=== PATIENT | male | born 1940 | race Caucasian/White ===

== ENCOUNTER 2025-04-12 05:36 | Inpatient (IN) | payer OTHER ==
[2025-04-12] VITALS (22 sets, daily range): BP systolic 91–141; BP diastolic 5–89
[~2025-04-12] VITALS: Ht 177.8 cm; Wt 62.6 kg
[2025-04-12 06:02] LABS: BASOPHILS ABSOLUTE AUTO 0.06 K/mm3 (0.00-0.23); BASOPHILS PERCENT AUTO 0 % (0-2); EOSINOPHILS ABSOLUTE AUTO 0.00 K/mm3 (0.00-0.68); EOSINOPHILS PERCENT AUTO 0 % (0-6); Hematocrit 24.3 % (37.0-53.0); Hemoglobin 8.6 g/dL (13.5-17.5); IMMATURE GRAN ABSOLUTE AUTO 1.03 K/mm3 (0.00-0.10); IMMATURE GRAN PERCENT AUTO 4 % (0-1); LYMPHOCYTES ABSOLUTE AUTO 0.74 K/mm3 (0.84-5.20); LYMPHOCYTES PERCENT AUTO 3 % (21-46); MONOCYTES ABSOLUTE AUTO 1.01 K/mm3 (0.16-1.47); MONOCYTES PERCENT AUTO 4 % (4-13); Mean Corpuscular HGB Conc 35.4 g/dL (31.5-36.5); Mean Corpuscular Volume 87 fL (80-100); NEUTROPHILS ABSOLUTE AUTO 21.08 K/mm3 (1.96-9.15); NEUTROPHILS PERCENT AUTO 88 % (41-73); NRBC ABSOLUTE 0.03 K/mm3 (0.00-0.02); NRBC Auto 0.1 /100 WBC (0.0-0.2); Platelet Count 84 K/mm3 (150-400); RDW Coefficient Variation 14.0 % (11.7-14.2); RDW Standard Deviation 44.1 fL (35.1-46.3)
[2025-04-12 06:06] LABS: Calcium, Ionized (POC) 0.97 mmol/L (1.10-1.46); Chloride (POC) 94 mmol/L (98-108); Creatinine (POC) 8.7 mg/dL (0.8-1.3); Glucose (ISTAT POC) 181 mg/dL (70-99); Hematocrit (POC) 24.0 % (41.0-53.0); Hemoglobin (POC) 8.2 g/dL (13.5-17.5); Potassium (POC) 4.9 mmol/L (3.5-5.5); Sodium (POC) 127 mmol/L (135-148); Total CO2 (POC) 14 mmol/L (21-32)
[2025-04-12] MEDS ORDERED: Ketamine HCl 100 MG / ML 5ML Vial ONE (06:17)
[2025-04-12] MEDS ORDERED: Magnesium Sulf 2 GM/Water 50ML 50 ML IV ONE (06:20)
[2025-04-12] MEDS ORDERED: Enoxaparin 80 MG/0.8 ML SYR SC ONE (06:20)
[2025-04-12] MEDS ORDERED: CefTRIAXone Sodium 2,000 MG in NS 100 ML IV ONE (06:20)
[2025-04-12] MEDS ORDERED: NS 1,000 ML IV ONE ×4 (06:24→09:10)
[2025-04-12 06:30] LABS: Magnesium, Blood 2.4 mg/dL (1.6-2.4)
[2025-04-12 06:37] LABS: Alanine Aminotransfer (ALT/SGP 28.0 U/L (12-78); Albumin, Blood 1.8 g/dL (3.4-5.0); Albumin/Globulin Ratio 0.6 (0.8-1.8); Anion Gap 22.0 mmol/L (3-11); Aspartate Aminotrans (AST/SGOT 41.0 U/L (12-37); Bilirubin, Total 0.7 mg/dL (0.1-1.0); Blood Urea Nitrogen 237.0 mg/dL (8-24); CO2, Blood 16.0 mmol/L (21-32); Calcium, Blood 7.8 mg/dL (8.5-10.1); Chloride, Blood 95.0 mmol/L (98-108); Creatinine, Blood 7.88 mg/dL (0.60-1.20); Globulin, Blood 2.9 g/dL (2.2-4.0); Glucose, Blood 192.0 mg/dL (70-99); Potassium, Blood 4.8 mmol/L (3.5-5.5); Prothrombin Time Results 14.1 Sec (9.7-11.5); Sodium, Blood 128.0 mmol/L (136-145); Total Protein, Blood 4.7 g/dL (6.4-8.2)
[2025-04-12 06:51] LABS: Source, Urine Clean Catch
[2025-04-12 06:54] LABS: Bilirubin, Urine Neg (Neg); Color, Urine Yellow (P-Yellow); Glucose Qualitative, Urine Neg (Neg); Ketones, Urine Neg (Neg); Leukocyte Esterase, Urine 2+ (Neg); Protein, Urine Neg (Neg); Specific Gravity, Urine 1.015 (1.003-1.022); Urobilinogen, Urine NORM (Normal)
[2025-04-12] MEDS ORDERED: Calcium Gluconate 10% 2,000 MG in NS 50 ML IV ONE (07:00)
[2025-04-12] MEDS ORDERED: NS 1,000 ML BAG IR ONE (07:20)
[2025-04-12] MEDS ORDERED: Pantoprazole Sodium 40 MG Injection IV ONE (08:00)
[2025-04-12] MEDS ORDERED: Vasopressin 20 UNITS in NS 100 ML IV SCH (08:50)
[2025-04-12] MEDS ORDERED: FLU VACC TS2025(65UP)/MF59C/PF 45 MCG/0.5 ML SYRINGE IM SCH (09:20)
[2025-04-12] MEDS ORDERED: Amiodarone HCl 450 MG in NS 250 ML IV SCH (09:35)
[2025-04-12] MEDS ORDERED: Amiodarone HCl 150 MG in NS 100 ML IV ONE ×2 (09:35→14:25)
[2025-04-12 09:37] LABS: pH Blood Venous 7.25 (7.34-7.37)
[2025-04-12 09:42] LABS: Hematocrit 26.2 % (37.0-53.0); Hemoglobin 9.1 g/dL (13.5-17.5)
[2025-04-12] MEDS ORDERED: Piperacillin/Tazobactam Sod 3.375 GM in NS 100 ML IV ONE ×2 (10:05→13:40)
[2025-04-12] MEDS ORDERED: NS 1,000 ML IV SCH (10:40)
--- NOTE | 2025-04-12 12:30 | NUR ---
ARRIVAL TO UNIT PT ARRIVED TO UNIT VIA [facility]RE[facility] FROM ED. ED NURSE & RT AT BEDSIDE. PT INTUBATED/SEDATED. VENT SETTINGS 16/5/430/50%, CAPNOGRAPHY IN USE. PT TOLERATING VENT. CENTRAL LINE TO LIJ INFUSING AMIODARONE, LEVOPHED, PRECEDEX PER FLOWSHEET. ARTERIAL LINE TO R WRIST c ARMBOARD IN PLACE, DRESSING C/D/I. MAP >65. HR AFIB 120-140s. TEMP 96.6, WARM BLANKETS PROVIDED. PT RETRACTS TO PAINFUL STIMULI, ABLE TO OPEN EYES. PT DOES NOT FOLLOW COMMANDS OR TRACK STAFF IN ROOM. 2 PERSON ASSIST R/T REPOSITIONING. TEMP GREEN DRAINING YELLOW URINE TO GRAVITY. RECTAL TUBE IN PLACE c NO STOOL IN COLLECTION BAG. OG TUBE CLAMPED. MULTIPLE WOUNDS TO BILAT LEs, SKIN TEAR TO R FA, COCCYX WOUND. PICTURES IN CHART, MEPILEXES PLACED. CHG BATH GIVEN & ALL LINENS CHANGED.
[2025-04-12 12:42] LABS: Thyroid Stimulating Hormone 1.21 uIU/mL (0.360-4.800)
[2025-04-12] MEDS ORDERED: Cetylpyridinium Chloride 1 EA MISC MT SCH (14:15)
[2025-04-12] MEDS ORDERED: LORazepam 2 MG/ML 1ML Injection IV PRN (14:15)
[2025-04-12] MEDS ORDERED: FentaNYL Citrate 50 MCG/ML 2 ML Injection IV PRN (14:20)
[2025-04-12] MEDS ORDERED: NS 250 ML IV PRN (14:30)
[2025-04-12] MEDS ORDERED: Ketamine HCl 100 MG / ML 5ML Vial IV ONE (15:45)
[2025-04-12] MEDS ORDERED: Rocuronium Bromide 10 MG/ML 5ML Injection IV ONE (15:45)
[2025-04-12] MEDS ORDERED: Phenylephrine HCl 100 MCG/ML-NS 10MLSYR (1MG/10ML) IV ONE (15:45)
[2025-04-12] MEDS ORDERED: Hydrogen Peroxide 1.5 % Solution MT SCH (16:00)
[2025-04-12] MEDS ORDERED: Propofol 10mg/ml 20 ml Vial (Procedural) IV ONE (16:19)
[2025-04-12] MEDS ORDERED: Glycopyrrolate 0.2 MG/ML 5ML SYR (1MG Total) IV ONE (16:19)
[2025-04-12 16:25] LABS: pH Blood Arterial 7.39 (7.35-7.45)
[2025-04-12 16:52] LABS: BASOPHILS ABSOLUTE AUTO 0.06 K/mm3 (0.00-0.23); BASOPHILS PERCENT AUTO 0 % (0-2); EOSINOPHILS ABSOLUTE AUTO 0.01 K/mm3 (0.00-0.68); EOSINOPHILS PERCENT AUTO 0 % (0-6); Hematocrit 24.5 % (37.0-53.0); Hemoglobin 9.0 g/dL (13.5-17.5); IMMATURE GRAN ABSOLUTE AUTO 0.85 K/mm3 (0.00-0.10); IMMATURE GRAN PERCENT AUTO 3 % (0-1); LYMPHOCYTES ABSOLUTE AUTO 0.54 K/mm3 (0.84-5.20); LYMPHOCYTES PERCENT AUTO 2 % (21-46); MONOCYTES ABSOLUTE AUTO 0.86 K/mm3 (0.16-1.47); MONOCYTES PERCENT AUTO 4 % (4-13); Mean Corpuscular HGB Conc 36.7 g/dL (31.5-36.5); Mean Corpuscular Volume 85 fL (80-100); NEUTROPHILS ABSOLUTE AUTO 22.48 K/mm3 (1.96-9.15); NEUTROPHILS PERCENT AUTO 91 % (41-73); NRBC ABSOLUTE 0.02 K/mm3 (0.00-0.02); NRBC Auto 0.1 /100 WBC (0.0-0.2); Platelet Count 93 K/mm3 (150-400); RDW Coefficient Variation 14.1 % (11.7-14.2); RDW Standard Deviation 43.8 fL (35.1-46.3)
--- NOTE | 2025-04-12 16:59 | NUR ---
MET WITH PT'S FRIEND AND APPOINTEE ON ADVANCE DIRECTIVE, SINCERE. COPY ON HARD CHART, SENT TO MEDICAL RECORDS, AND EMAILED TO FULL STACK DEVELOPER. SHE REQUESTS CHANGING CODE STATUS TO DNR, BUT OTHERWISE WANTS TO SEE HOW HE DOES THROUGH THE NIGHT. BEDSIDE RN AND PHYSICIAN UPDATED, ORDER APPROVED FOR DNR.
[2025-04-12 17:27] LABS: Magnesium, Blood 2.7 mg/dL (1.6-2.4)
[2025-04-12 17:39] LABS: Alanine Aminotransfer (ALT/SGP 30.0 U/L (12-78); Albumin, Blood 1.9 g/dL (3.4-5.0); Albumin/Globulin Ratio 0.7 (0.8-1.8); Anion Gap 13.0 mmol/L (3-11); Aspartate Aminotrans (AST/SGOT 43.0 U/L (12-37); Bilirubin, Total 0.6 mg/dL (0.1-1.0); Blood Urea Nitrogen 190.0 mg/dL (8-24); CO2, Blood 18.0 mmol/L (21-32); Calcium, Blood 7.8 mg/dL (8.5-10.1); Chloride, Blood 111.0 mmol/L (98-108); Creatinine, Blood 4.54 mg/dL (0.60-1.20); Globulin, Blood 2.9 g/dL (2.2-4.0); Glucose, Blood 207.0 mg/dL (70-99); Phosphorus, Blood 3.8 mg/dL (2.5-4.9); Potassium, Blood 4.2 mmol/L (3.5-5.5); Total Protein, Blood 4.8 g/dL (6.4-8.2)
[2025-04-12 17:40] LABS: Sodium, Blood 138.0 mmol/L (136-145)
--- NOTE | 2025-04-12 18:22 | NUR ---
SHIFT SUMMARY INTUBATED/SEDATED. PT ROUSABLE TO VERBAL/PAINFUL STIMULI. ABLE TO ANSWER YES/NO QUESTIONS c HEAD NOD, FOLLOWS SIMPLE COMMANDS. PRECEDEX/FENTANYL INFUSING PER FLOWSHEET. ARTERIAL LINE L WRIST INSERTION SITE C/D/I. LIJ CENTRAL LINE CHG TEG C/D/I. AMIODARONE/LEVOPHED INFUSING PER FLOWSHEET TO MAINTAIN MAP >65. HR TODAY AFIB 60s-140s, CURRENTLY 110-120s. TEMP MIN 96.6, CURRENTLY 97.8. OG TUBE TO LIS, APPROX 1L COFFE GROUND OUTPUT 1730, DR. RAZO AWARE. RECTAL TUBE IN PLACE, NO OUTPUT. TEMP GREEN DRAINING YELLOW URINE TO GRAVITY. PICTURES OF WOUNDS IN CHART c MULTIPLE MEPILEX IN PLACE. Q2 TURN SCHEDULE MAINTAINED. FRIEND, CHRIS, DESIGNATED DECISION MAKER PER ADVANCE DIRECTIVE ON CHART. ANTICIPATED SEDATION VACATION TOMMOROW & PLAN OF CARE CONVERSATION. WILL REPORT TO NAYLA GRAJEDA.
--- NOTE | 2025-04-12 20:30 | NUR ---
ASSUMPTION OF CARE: ASSUMED CARE AT START OF SHIFT (1899). REPORT RECEIVED FROM GUCCI SALAS RN. PT IS DOING WELL AND RESTING IN BED. PT IS INTUBATED, ALERT TO VOICE AND ABLE TO NOD HEAD TO YES OR NO QUESTTIONS, CAN FOLLOW SIMPLE COMMANDS. PT DENIES ANY PAIN OR CP AT THIS TIME. ON AMIODOARONE, LEVOPHED, AND FENTANYL GTT PER EMR ORDERS. ON VENT- ACVC: 16/430/5/35% LUNG SOUNDS ARE CAORSE, SPO2 >65%. A-FIB RYTHM WITH SBP: 90-100'S MAP >65 HR: 60-150'S. LINES: PERIPHERAL RAC, LAC, L FOREARM, CENTERAL LINE IN LIJ, ART LINE IN R ARM. GREEN CATHETER AND RECTAL IN PLACE AND DRAINING TO GRAVITY. OG TUBE PLACE AND CONNECTED TO WALL SUCTION. LINES, CORDS, AND TUBES PLACED OUT OF REACH. CALL LIGHT PLACED WITHIN REACH.
[2025-04-12] MEDS ORDERED: Piperacillin/Tazobactam Sod 3.375 GM in NS 100 ML IV SCH (23:00)
[2025-04-13] VITALS (27 sets, daily range): BP systolic 96–136; BP diastolic 43–91
[2025-04-13 04:12] LABS: Hematocrit 24.7 % (37.0-53.0); Hemoglobin 8.9 g/dL (13.5-17.5); Mean Corpuscular HGB Conc 36.0 g/dL (31.5-36.5); Mean Corpuscular Volume 85 fL (80-100); NRBC ABSOLUTE 0.09 K/mm3 (0.00-0.02); NRBC Auto 0.4 /100 WBC (0.0-0.2); Platelet Count 113 K/mm3 (150-400); RDW Coefficient Variation 14.3 % (11.7-14.2); RDW Standard Deviation 44.3 fL (35.1-46.3)
[2025-04-13 04:13] LABS: pH Blood Arterial 7.45 (7.35-7.45)
[2025-04-13 04:32] LABS: Magnesium, Blood 2.6 mg/dL (1.6-2.4)
[2025-04-13 05:20] LABS: Alanine Aminotransfer (ALT/SGP 26.0 U/L (12-78); Albumin, Blood 1.9 g/dL (3.4-5.0); Albumin/Globulin Ratio 0.6 (0.8-1.8); Anion Gap 14.0 mmol/L (3-11); Aspartate Aminotrans (AST/SGOT 33.0 U/L (12-37); Bilirubin, Total 0.7 mg/dL (0.1-1.0); Blood Urea Nitrogen 160.0 mg/dL (8-24); CO2, Blood 18.0 mmol/L (21-32); Calcium, Blood 7.9 mg/dL (8.5-10.1); Chloride, Blood 117.0 mmol/L (98-108); Creatinine, Blood 3.22 mg/dL (0.60-1.20); Globulin, Blood 3.1 g/dL (2.2-4.0); Glucose, Blood 208.0 mg/dL (70-99); Phosphorus, Blood 3.4 mg/dL (2.5-4.9); Potassium, Blood 3.9 mmol/L (3.5-5.5); Sodium, Blood 145.0 mmol/L (136-145); Total Protein, Blood 5.0 g/dL (6.4-8.2)
--- NOTE | 2025-04-13 06:41 | NUR ---
SHIFT SUMMARY: PT IS DOING WELL AND RESTING IN BED. PT REMAIN ALERT TO VERBAL AND ABLE TO NOD TO YES/NO QUESTIION AND FOLLOWING SIMPLE COMMANDS. FENTANYL, PRECEDEX, LEVOPHED, AND AMIODARONE GTT PER EMR ORDERS. VITAL SIGNS HAVE BEEN STABLE. PT STILL INTUBATED AND ON VENT: ACVC- 16/430/5/35% SPO2 >95%. A-FIB RYTHM SBP: 90-110'S MAP >65 HR: 60-150'S. ART LINE IN R ARM. IV: PERIPHERAL LAC, RAC, L FOREARM, CENTERAL LINE IN LIJ. GREEN CATH AND RECTAL TUBE IN PLACE AND DRAINING TO GRAVITY. OG TUBE CONNECTED TO INTERMITENT SUCTION. LINES, CORDS, AND TUBES PLACED OUT OF REACH. CALL LIGHT PLACED WITHIN REACH.
--- NOTE | 2025-04-13 09:00 | NUR ---
DR RAZO TO BEDSIDE ORDER TO D/C FENTANYL. ORDER IV CARDIZEM. ORDER TO EXTUBATE. FRIENDS AT BEDSIDE.
[2025-04-13] MEDS ORDERED: Diltiazem HCl 5 MG / ML 5ML Vial IV ONE (09:35)
[2025-04-13 12:23] LABS: Hematocrit 25.4 % (37.0-53.0); Hemoglobin 8.9 g/dL (13.5-17.5); Mean Corpuscular HGB Conc 35.0 g/dL (31.5-36.5); Mean Corpuscular Volume 88 fL (80-100); NRBC ABSOLUTE 0.11 K/mm3 (0.00-0.02); NRBC Auto 0.4 /100 WBC (0.0-0.2); Platelet Count 125 K/mm3 (150-400); RDW Coefficient Variation 14.6 % (11.7-14.2); RDW Standard Deviation 46.6 fL (35.1-46.3)
--- NOTE | 2025-04-13 14:29 | NUR ---
Spiritual Care Visit. Pt. is resting but responds when I enter the room. Pt. is pleasant. Friends are at bedside. Facilitated a short life review and considered matters of yareli and belief. Pt. verbalized his yareli is not limited to going to a single synagogue. Listem with empathy and interest. Prayed with the Pt. Pt. verbalized gratitude fo rthe spiritual care visit and welcomed this autocad electrical designer to return.
[2025-04-13] MEDS ORDERED: ZINC OXIDE/PETROLATUM, YELLOW 1 APPLIC/71 GM PASTE TOP PRN (18:25)
--- NOTE | 2025-04-13 18:29 | NUR ---
SHIFT SUMMARY PT A&O x3. PT ROUSBALE TO VERBAL STIMULI, RESPONDS TO QUESTIONS APPROPRIATELY. SPO2 >98% ON RA. SPEECH SOFT S/P EXTUBATION @ 0920 TODAY. FOLLOWS COMMANDS, EXTREMITIES WEAK. PT VERBALIZES STRONG WANT TO DRINK WATER, PT HAS CONSISTENT COUGH c ORAL SWABS. PT VERBALIZES UNDERSTANDING OF CONTINUED NPO STATUS R/T ASPIRATION RISK. LIJ CENTRAL LINE CHG TEG C/D/I. MAP >65 VIA ARTERIAL LINE L WRIST INSERTION SITE C/D/I. HR AFIB 50s-140s. AMIODARONE TO CONTINUE @ 0.5MG/MIN PER /, LEVOPHED CURRENTLY INFUSING @ 4MCG/MIN, CARDIZEM CURRENTLY ON STANDBY. LR INFUSING @ 125mL/HR. TEMP GREEN DRAINING YELLOW URINE TO GRAVITY. OG TUBE REMOVED TODAY, MIN OUTPUT PRIOR TO REMOVAL c EXTUBATION. RECTAL TUBE REMOVED TODAY, SMALL AMOUNT OF STOOL AROUND INSERTION SITE, NO BM SINCE REMOVAL. Q2 TURN SCHEDULE MAINTAINED, PT ABLE TO MOVE LIMBS BUT IS WEAK. CAREGIVER CURRENTLY AT BEDSIDE. CALL LIGHT IN REACH, REPORT TO BE GIVEN TO NAYLA GRAJEDA.
[2025-04-13] MEDS ORDERED: Pantoprazole Sodium 40 MG Injection IV SCH (21:00)
[2025-04-14] VITALS (48 sets, daily range): BP systolic 87–132; BP diastolic 47–115
[2025-04-14 04:08] LABS: BASOPHILS ABSOLUTE AUTO 0.07 K/mm3 (0.00-0.23); BASOPHILS PERCENT AUTO 0 % (0-2); EOSINOPHILS ABSOLUTE AUTO 0.02 K/mm3 (0.00-0.68); EOSINOPHILS PERCENT AUTO 0 % (0-6); Hematocrit 21.2 % (37.0-53.0); Hemoglobin 7.4 g/dL (13.5-17.5); IMMATURE GRAN ABSOLUTE AUTO 1.42 K/mm3 (0.00-0.10); IMMATURE GRAN PERCENT AUTO 6 % (0-1); LYMPHOCYTES ABSOLUTE AUTO 0.63 K/mm3 (0.84-5.20); LYMPHOCYTES PERCENT AUTO 3 % (21-46); MONOCYTES ABSOLUTE AUTO 1.97 K/mm3 (0.16-1.47); MONOCYTES PERCENT AUTO 8 % (4-13); Mean Corpuscular HGB Conc 34.9 g/dL (31.5-36.5); Mean Corpuscular Volume 89 fL (80-100); NEUTROPHILS ABSOLUTE AUTO 20.92 K/mm3 (1.96-9.15); NEUTROPHILS PERCENT AUTO 84 % (41-73); NRBC ABSOLUTE 0.38 K/mm3 (0.00-0.02); NRBC Auto 1.5 /100 WBC (0.0-0.2); Platelet Count 113 K/mm3 (150-400); RDW Coefficient Variation 14.7 % (11.7-14.2); RDW Standard Deviation 47.2 fL (35.1-46.3)
[2025-04-14 04:34] LABS: Magnesium, Blood 2.4 mg/dL (1.6-2.4)
[2025-04-14 04:37] LABS: Alanine Aminotransfer (ALT/SGP 23.0 U/L (12-78); Albumin, Blood 1.8 g/dL (3.4-5.0); Albumin/Globulin Ratio 0.7 (0.8-1.8); Anion Gap 5.0 mmol/L (3-11); Aspartate Aminotrans (AST/SGOT 31.0 U/L (12-37); Bilirubin, Total 0.6 mg/dL (0.1-1.0); Blood Urea Nitrogen 77.0 mg/dL (8-24); CO2, Blood 26.0 mmol/L (21-32); Calcium, Blood 7.6 mg/dL (8.5-10.1); Chloride, Blood 129.0 mmol/L (98-108); Creatinine, Blood 1.56 mg/dL (0.60-1.20); Globulin, Blood 2.6 g/dL (2.2-4.0); Glucose, Blood 135.0 mg/dL (70-99); Phosphorus, Blood 1.7 mg/dL (2.5-4.9); Potassium, Blood 3.1 mmol/L (3.5-5.5); Sodium, Blood 157.0 mmol/L (136-145); Total Protein, Blood 4.4 g/dL (6.4-8.2)
[2025-04-14 05:11] LABS: BASOPHILS ABSOLUTE AUTO 0.05 K/mm3 (0.00-0.23); BASOPHILS PERCENT AUTO 0 % (0-2); EOSINOPHILS ABSOLUTE AUTO 0.02 K/mm3 (0.00-0.68); EOSINOPHILS PERCENT AUTO 0 % (0-6); Hematocrit 21.1 % (37.0-53.0); Hemoglobin 7.3 g/dL (13.5-17.5); IMMATURE GRAN ABSOLUTE AUTO 1.28 K/mm3 (0.00-0.10); IMMATURE GRAN PERCENT AUTO 5 % (0-1); LYMPHOCYTES ABSOLUTE AUTO 0.66 K/mm3 (0.84-5.20); LYMPHOCYTES PERCENT AUTO 3 % (21-46); MONOCYTES ABSOLUTE AUTO 1.91 K/mm3 (0.16-1.47); MONOCYTES PERCENT AUTO 8 % (4-13); Mean Corpuscular HGB Conc 34.6 g/dL (31.5-36.5); Mean Corpuscular Volume 89 fL (80-100); NEUTROPHILS ABSOLUTE AUTO 20.45 K/mm3 (1.96-9.15); NEUTROPHILS PERCENT AUTO 84 % (41-73); NRBC ABSOLUTE 0.38 K/mm3 (0.00-0.02); NRBC Auto 1.6 /100 WBC (0.0-0.2); Platelet Count 108 K/mm3 (150-400); RDW Coefficient Variation 14.7 % (11.7-14.2); RDW Standard Deviation 47.3 fL (35.1-46.3)
[2025-04-14 05:39] LABS: Alanine Aminotransfer (ALT/SGP 23.0 U/L (12-78); Albumin, Blood 1.8 g/dL (3.4-5.0); Albumin/Globulin Ratio 0.7 (0.8-1.8); Anion Gap 3.0 mmol/L (3-11); Aspartate Aminotrans (AST/SGOT 31.0 U/L (12-37); Bilirubin, Total 0.6 mg/dL (0.1-1.0); Blood Urea Nitrogen 73.0 mg/dL (8-24); CO2, Blood 27.0 mmol/L (21-32); Calcium, Blood 7.8 mg/dL (8.5-10.1); Chloride, Blood 130.0 mmol/L (98-108); Creatinine, Blood 1.45 mg/dL (0.60-1.20); Globulin, Blood 2.7 g/dL (2.2-4.0); Glucose, Blood 135.0 mg/dL (70-99); Magnesium, Blood 2.4 mg/dL (1.6-2.4); Phosphorus, Blood 1.7 mg/dL (2.5-4.9); Potassium, Blood 3.1 mmol/L (3.5-5.5); Sodium, Blood 157.0 mmol/L (136-145); Total Protein, Blood 4.5 g/dL (6.4-8.2)
--- NOTE | 2025-04-14 06:25 | NUR ---
SHIFT SUMMARY PT AWAKE FREQUENTLY T/O NIGHT, ORIENTED X4, KNOWS DATE AND WHY HE IS HERE, MAEEX4 WITH GENERALIZED WEAKNESS, STILL NEEDS MAX ASSIST WITH REPOSITIONING. AMIODARONE GTT, LEVOPHED GTT, IVF PER ORDERS, SEE FLOWSHEET FOR CURRENT RATES. HR HAS REMAINED SINUS OFELIA 50'S-60'S WITH PACS T/O MOST OF NIGHT. DR BENITO UPDATED WITH LAB RESULTS THIS AM, STATES WILL LOOK AT CHART AND PUT IN ORDERS. A-LINE INTACT WITH GOOD WAVEFORM, CORRELATING WITH NIBP. WILL UPDATE DAY RN WITH ALL OUTSTANDING ISSUES AND PROBLEMS TO DATE. VSS AT THIS TIME.
[2025-04-14] MEDS ORDERED: Potassium Phosphate Dibasic 20 MM in Dextrose 5% 500 ML IV STA (06:30)
[2025-04-14] MEDS ORDERED: Insulin Regular 100 UNIT/ML 10ML Vial SC SCH (08:00)
--- NOTE | 2025-04-14 08:06 | NUR ---
ASSUMED CARE NOTE: ASSUMED CARE OF PT AT 0700, PT IS ALERT AND ORIENTED X 4, ABLE TO FOLLOW COMMANDS AND COMMUNICTAE NEEDS. PT WEAK T/O. PT ON RA WITH SPO2 AT 100% NO RESP DISTRESS NOTED. PT IN SB-SR, OCCASIONAL PVC'S, AMIODORONE STOPPED AT 0813 PER . LEVOPHED INFUSING AT 2MCG/MIN TO MAINTAIN MAP ABOVE 65. ACTIVE BT IN ALL QUADRANTS, DENIES NAUSEA. TEMP GREEN PATENT, DRAINING TO GRVITY. LIJ CENTRAL LINE C/D/I. R A-LINE DRESSING C/D/I ZEROED. PLAN OF CARE ONGOING.
[2025-04-14] MEDS ORDERED: Potassium Phosphate Dibasic 10 MM in Dextrose 5% 250 ML IV SCH (11:30)
[2025-04-14 12:44] LABS: Hematocrit 23.3 % (37.0-53.0); Hemoglobin 8.1 g/dL (13.5-17.5); Mean Corpuscular HGB Conc 34.8 g/dL (31.5-36.5); Mean Corpuscular Volume 89 fL (80-100); NRBC ABSOLUTE 0.47 K/mm3 (0.00-0.02); NRBC Auto 2.3 /100 WBC (0.0-0.2); Platelet Count 105 K/mm3 (150-400); RDW Coefficient Variation 14.7 % (11.7-14.2); RDW Standard Deviation 47.0 fL (35.1-46.3)
[2025-04-14 13:11] LABS: Albumin, Blood 1.7 g/dL (3.4-5.0); Anion Gap 6 mmol/L (3-11); Blood Urea Nitrogen 59 mg/dL (8-24); CO2, Blood 26 mmol/L (21-32); Calcium, Blood 7.6 mg/dL (8.5-10.1); Chloride, Blood 125 mmol/L (98-108); Creatinine, Blood 1.26 mg/dL (0.60-1.20); Glucose, Blood 200 mg/dL (70-99); Magnesium, Blood 2.4 mg/dL (1.6-2.4); Phosphorus, Blood 2.6 mg/dL (2.5-4.9); Potassium, Blood 3.4 mmol/L (3.5-5.5); Sodium, Blood 154 mmol/L (136-145)
[2025-04-14 13:40] LABS: Prostate Specific Antigen >2000.000 ng/mL (0.000-4.000)
[2025-04-14] MEDS ORDERED: Metoclopramide HCl 5MG / ML 2ML Vial IV ONE (13:50)
--- NOTE | 2025-04-14 14:03 | NUR ---
PT IS ALERT AND ORIENTED THIS AM. HE STATED HE WANTS TO REMAIN DNR, BUT IS INTERESTED IN CONSULTING WITH ONCOLOGY TO SEE WHAT HIS OPTIONS ARE FOR CANCER TREATMENT. HE DENIES PAIN TODAY, IS PLEASANT AND COOPERATIVE WITH CARE. HE IS BEING SCHDULED FOR EGD. WILL UPDATE PT'S CELIA REYES.
[2025-04-14] MEDS ORDERED: Piperacillin/Tazobactam Sod 4.5 GM in NS 100 ML IV SCH (16:00)
[2025-04-14] MEDS ORDERED: Piperacillin/Tazobactam Sod 3.375 GM in NS 100 ML IV SCH (16:00)
--- NOTE | 2025-04-14 17:21 | NUR ---
04/14/[address] IN ICU 13; SEE ANESTHESIA RECORDS.
[2025-04-14] MEDS ORDERED: EpiNEPhrine 1 MG/1 ML 1ML Vial ONE (17:22)
--- NOTE | 2025-04-14 18:37 | NUR ---
SHIFT SUMMARY: PT IS ALERT AND ORIENTED X 4, ABLE TO FOLLOW COMMANDS AND COMMUNICATE NEEDS. GENERALIZED WEAKNESS T/O. PT DENIES PAIN T/O SHIFT. PT REMAINS ON RA WITH SPO2 ABOVE 95% NO RESP DISTRESS NOTED. PT IN SB WITH HR BETWEEN 50-60, LEVOPHED AT 2 MCG/MIN, UNABLE TO TITRATE OFF. PT DENIES CP. NO NAUSEA/VOMITING THIS SHIFT. SPEECH THERAPY UNABLE TO EVAL PT DUE TO NPO STATUS D/T EGD. ACTIVE BT IN ALL QUADRANTS, NO BM THIS SHIFT. GREEN CATHETER DRAINING TO GRAVITY. PT TURNED Q2HRS. PLAN OF CARE ONGOING, CALL LIGHT WITHIN REACH.
[2025-04-14] MEDS ORDERED: Sucralfate 1000MG / 10ML UD BTL PO SCH (21:00)
[2025-04-15] VITALS (74 sets, daily range): BP systolic 82–118; BP diastolic 40–94
[2025-04-15 03:46] LABS: Hematocrit 23.0 % (37.0-53.0); Hemoglobin 7.9 g/dL (13.5-17.5); Mean Corpuscular HGB Conc 34.3 g/dL (31.5-36.5); Mean Corpuscular Volume 90 fL (80-100); NRBC ABSOLUTE 0.54 K/mm3 (0.00-0.02); NRBC Auto 2.9 /100 WBC (0.0-0.2); Platelet Count 105 K/mm3 (150-400); RDW Coefficient Variation 15.4 % (11.7-14.2); RDW Standard Deviation 49.7 fL (35.1-46.3)
[2025-04-15 04:04] LABS: Alanine Aminotransfer (ALT/SGP 21.0 U/L (12-78); Albumin, Blood 1.7 g/dL (3.4-5.0); Albumin/Globulin Ratio 0.7 (0.8-1.8); Anion Gap 6.0 mmol/L (3-11); Aspartate Aminotrans (AST/SGOT 28.0 U/L (12-37); Bilirubin, Total 0.7 mg/dL (0.1-1.0); Blood Urea Nitrogen 38.0 mg/dL (8-24); CO2, Blood 26.0 mmol/L (21-32); Calcium, Blood 7.3 mg/dL (8.5-10.1); Chloride, Blood 125.0 mmol/L (98-108); Creatinine, Blood 1.06 mg/dL (0.60-1.20); Globulin, Blood 2.6 g/dL (2.2-4.0); Glucose, Blood 142.0 mg/dL (70-99); Magnesium, Blood 2.0 mg/dL (1.6-2.4); Phosphorus, Blood 1.6 mg/dL (2.5-4.9); Potassium, Blood 3.1 mmol/L (3.5-5.5); Sodium, Blood 154.0 mmol/L (136-145); Total Protein, Blood 4.3 g/dL (6.4-8.2)
[2025-04-15 04:10] LABS: BAND PERCENT MAN 4 % (0-8); BASOPHILS ABSOLUTE MAN 0.00 K/mm3 (0.00-0.23); BASOPHILS PERCENT MAN 0 % (0-2); EOSINOPHILS ABSOLUTE MAN 0.00 K/mm3 (0.00-0.68); EOSINOPHILS PERCENT MAN 0 % (0-6); LYMPHOCYTES % ATYPICAL MANUAL 1 % (0-0); LYMPHOCYTES ABSOLUTE MAN 0.56 K/mm3 (0.84-5.20); LYMPHOCYTES PERCENT MAN 2 % (21-46); METAMYELOCYTE ABSOLUTE MAN 0.56 K/mm3 (0.00-0.00); METAMYELOCYTE PERCENT MAN 3 % (0-0); MONOCYTES ABSOLUTE MAN 0.74 K/mm3 (0.16-1.47); MONOCYTES PERCENT MAN 4 % (4-13); MYELOCYTE ABSOLUTE MAN 0.37 K/mm3 (0.00-0.00); MYELOCYTE PERCENT MAN 2 % (0-0); NEUTROPHILS ABSOLUTE MAN 16.45 K/mm3 (1.96-9.15); SEG NEUTROPHILS PERCENT MAN 84 % (41-73)
[2025-04-15] MEDS ORDERED: Potassium Phosphate Dibasic 30 MM in Dextrose 5% 500 ML IV ONE (04:15)
--- NOTE | 2025-04-15 06:43 | NUR ---
SHIFT SUMMARY A/O X4 DURING SHIFT, FOLLOWS COMMANDS ABLE WITH GENERALIZED WEAKNESS, ABLE TO ASSIST MINIMALLY WITH REPOSITIONING. REMAINED SINUS OFELIA IN 50'S MOST OF SHIFT. DENIES CP OR DISCOMFORT. LEVO GTT CON'T AT [address] MOISE UPDATED WITH AM LABS, ORDERS RECEIVED AND IMPLEMENTED. VSS. AFEBRILE. WILL UPDATE DAY RN WITH ALL OUTSTANDING ISSUES AND PROBLEMS TO DATE.
[2025-04-15 10:10] LABS: Source, Urine Foley catheter
[2025-04-15 10:13] LABS: Bilirubin, Urine Neg (Neg); Color, Urine Yellow (P-Yellow); Glucose Qualitative, Urine Neg (Neg); Ketones, Urine Neg (Neg); Leukocyte Esterase, Urine 3+ (Neg); Protein, Urine 3+ (Neg); Specific Gravity, Urine 1.020 (1.003-1.022); Urobilinogen, Urine NORM (Normal)
[2025-04-15 10:22] LABS: Red Blood Cells, Urine TNTC /hpf (0-2); White Blood Cells, Urine TNTC /hpf (0-5)
[2025-04-15 11:09] LABS: Hematocrit 23.0 % (37.0-53.0); Hemoglobin 7.7 g/dL (13.5-17.5); Mean Corpuscular HGB Conc 33.5 g/dL (31.5-36.5); Mean Corpuscular Volume 91 fL (80-100); NRBC ABSOLUTE 0.36 K/mm3 (0.00-0.02); NRBC Auto 2.2 /100 WBC (0.0-0.2); Platelet Count 100 K/mm3 (150-400); RDW Coefficient Variation 15.8 % (11.7-14.2); RDW Standard Deviation 51.4 fL (35.1-46.3)
[2025-04-15 11:27] LABS: BAND PERCENT MAN 5 % (0-8); BASOPHILS ABSOLUTE MAN 0.00 K/mm3 (0.00-0.23); BASOPHILS PERCENT MAN 0 % (0-2); EOSINOPHILS ABSOLUTE MAN 0.00 K/mm3 (0.00-0.68); EOSINOPHILS PERCENT MAN 0 % (0-6); LYMPHOCYTES ABSOLUTE MAN 0.80 K/mm3 (0.84-5.20); LYMPHOCYTES PERCENT MAN 5 % (21-46); METAMYELOCYTE ABSOLUTE MAN 0.16 K/mm3 (0.00-0.00); METAMYELOCYTE PERCENT MAN 1 % (0-0); MONOCYTES ABSOLUTE MAN 0.48 K/mm3 (0.16-1.47); MONOCYTES PERCENT MAN 3 % (4-13); MYELOCYTE ABSOLUTE MAN 0.48 K/mm3 (0.00-0.00); MYELOCYTE PERCENT MAN 3 % (0-0); NEUTROPHILS ABSOLUTE MAN 14.14 K/mm3 (1.96-9.15); SEG NEUTROPHILS PERCENT MAN 83 % (41-73)
[2025-04-15 11:30] LABS: Albumin, Blood 1.6 g/dL (3.4-5.0); Anion Gap 3 mmol/L (3-11); Blood Urea Nitrogen 30 mg/dL (8-24); CO2, Blood 27 mmol/L (21-32); Calcium, Blood 6.9 mg/dL (8.5-10.1); Chloride, Blood 121 mmol/L (98-108); Creatinine, Blood 1.09 mg/dL (0.60-1.20); Glucose, Blood 178 mg/dL (70-99); Phosphorus, Blood 2.7 mg/dL (2.5-4.9); Potassium, Blood 3.6 mmol/L (3.5-5.5); Sodium, Blood 147 mmol/L (136-145)
[2025-04-15] MEDS ORDERED: DEXTROSE 5% IV SCH (16:00)
[2025-04-15] MEDS ORDERED: PIPERACILLIN IV SCH (16:00)
[2025-04-15] MEDS ORDERED: TAZOBACTAM SOD IV SCH (16:00)
[2025-04-15 18:30] LABS: Hematocrit 22.5 % (37.0-53.0); Hemoglobin 7.5 g/dL (13.5-17.5)
[2025-04-16] VITALS (97 sets, daily range): BP systolic 86–143; BP diastolic 39–84
[2025-04-16 00:23] LABS: Hematocrit 23.7 % (37.0-53.0); Hemoglobin 8.1 g/dL (13.5-17.5)
[2025-04-16 05:57] LABS: Hematocrit 23.2 % (37.0-53.0); Hemoglobin 7.9 g/dL (13.5-17.5); Mean Corpuscular HGB Conc 34.1 g/dL (31.5-36.5); Mean Corpuscular Volume 91 fL (80-100); NRBC ABSOLUTE 0.17 K/mm3 (0.00-0.02); NRBC Auto 0.9 /100 WBC (0.0-0.2); Platelet Count 116 K/mm3 (150-400); RDW Coefficient Variation 15.9 % (11.7-14.2); RDW Standard Deviation 49.7 fL (35.1-46.3)
--- NOTE | 2025-04-16 06:02 | NUR ---
SHIFT SUMMARY A/O X4, AWAKE PERIODICALLY T/O NIGHT, FOLLOWS COMMANDS APPROP, ABLE, WITH SEVERE GENERALIZED WEAKNESS. DENIED PAIN T/O NIGHT. ENCOURAGED TO PARTICIPATE MUCH POSSIBLE WITH REPOSITIONING TO BUILD STRENGTH. BP STARTED TO GET SOFT AROUND 2300 LAST NIGHT, PROVIDER MORRIS UPDATED AND ORDER FOR LEVOPHED RESTARTED. CURRENTLY AT 4 MCG TO KEEP MAP>65. VSS AFTER LEVO AND AFEBRILE T/O NIGHT. GREEN CATH D/C'D ON DAYS AND PT HAD NOT VOIDED YET, SAID HE DIDN'T HAVE TO GO. BLADDER SCAN SHOWED 420ML. PUREWICK APPLIED AND ENCOURAGED PT TO TRY AND VOID. WHEN THAT WASN'T SUCCESSFUL, REPEATED BLADDER SCAN WHICH SHOWED 749 ML. STRAIGHT CATH PERFORMED WITH OUTPUT OF 775 ML AROUND O200. AM LABS DRAWN AT 0545 SINCE H/H TIMED FOR 0600. RESULTS ARE PENDING. WILL UPDATE DAY RN WITH ALL OUTSTANDING ISSUES AND PROBLEMS TO DATE.
[2025-04-16 06:19] LABS: BAND PERCENT MAN 2 % (0-8); BASOPHILS ABSOLUTE MAN 0.00 K/mm3 (0.00-0.23); BASOPHILS PERCENT MAN 0 % (0-2); EOSINOPHILS ABSOLUTE MAN 0.00 K/mm3 (0.00-0.68); EOSINOPHILS PERCENT MAN 0 % (0-6); LYMPHOCYTES ABSOLUTE MAN 0.72 K/mm3 (0.84-5.20); LYMPHOCYTES PERCENT MAN 4 % (21-46); MONOCYTES ABSOLUTE MAN 0.90 K/mm3 (0.16-1.47); MONOCYTES PERCENT MAN 5 % (4-13); MYELOCYTE ABSOLUTE MAN 0.18 K/mm3 (0.00-0.00); MYELOCYTE PERCENT MAN 1 % (0-0); NEUTROPHILS ABSOLUTE MAN 16.30 K/mm3 (1.96-9.15); SEG NEUTROPHILS PERCENT MAN 88 % (41-73)
[2025-04-16 07:23] LABS: Anion Gap 8.0 mmol/L (3-11); Blood Urea Nitrogen 23.0 mg/dL (8-24); CO2, Blood 24.0 mmol/L (21-32); Calcium, Blood 7.0 mg/dL (8.5-10.1); Chloride, Blood 117.0 mmol/L (98-108); Creatinine, Blood 1.14 mg/dL (0.60-1.20); Glucose, Blood 111.0 mg/dL (70-99); Potassium, Blood 3.3 mmol/L (3.5-5.5); Sodium, Blood 146.0 mmol/L (136-145)
[2025-04-16] MEDS ORDERED: Potassium Chloride 10 Meq Tablet SA PO ONE (07:55)
[2025-04-16 13:58] LABS: Anion Gap 6.0 mmol/L (3-11); Blood Urea Nitrogen 19.0 mg/dL (8-24); CO2, Blood 25.0 mmol/L (21-32); Calcium, Blood 7.0 mg/dL (8.5-10.1); Chloride, Blood 115.0 mmol/L (98-108); Creatinine, Blood 1.04 mg/dL (0.60-1.20); Glucose, Blood 143.0 mg/dL (70-99); Potassium, Blood 3.8 mmol/L (3.5-5.5); Sodium, Blood 142.0 mmol/L (136-145)
--- NOTE | 2025-04-16 17:44 | NUR ---
Patient continues ICU level care. Patient requiring levopheod overnight, Midodrine dose increased today, levopheod succesfully weaned off this morning. Patient sat at edge of bed today with RN. Display poor core strength while on edge of bed requiring active support to maintain sitting up. Patient has yet to spontanous void after waggoner removal. Discussed with Dr Grimm, Flomax ordered to address retention.
--- NOTE | 2025-04-16 21:26 | NUR ---
ASSUMED CARE AT 1900 PATIENT IS ALERT AND ORIENTED X4. GENERALIZED WEAKNESS. ABLE TO FOLLOW SIMPLE COMMANDS. SP02 96% ON RA, DENIES SOB. DRY COUGH. COUGHING AFTER THIN LIQUID, INSTRUCTED PATIENT TO TUCK CHIN AND HAD HIM SITTING UP, PATIENT CONTINUED TO COUGH. WILL HOLD PO THIN LIQUID FOR NOW. HR SINUS OFELIA 50s, LOW DOSE LEVOPHED INFUSING TO MAINTAIN MAP >65. DENIES CP/PRESSURE. PATIENT REPOSITIONED. CALL LIGHT IN REACH. SEE SHIFT ASSESSMENT FOR MORE INFORMATION
[2025-04-17] VITALS (91 sets, daily range): BP systolic 68–152; BP diastolic 32–108
[2025-04-17 04:48] LABS: BASOPHILS ABSOLUTE AUTO 0.02 K/mm3 (0.00-0.23); BASOPHILS PERCENT AUTO 0 % (0-2); EOSINOPHILS ABSOLUTE AUTO 0.15 K/mm3 (0.00-0.68); EOSINOPHILS PERCENT AUTO 1 % (0-6); Hematocrit 22.1 % (37.0-53.0); Hemoglobin 7.4 g/dL (13.5-17.5); IMMATURE GRAN ABSOLUTE AUTO 0.76 K/mm3 (0.00-0.10); IMMATURE GRAN PERCENT AUTO 6 % (0-1); LYMPHOCYTES ABSOLUTE AUTO 0.86 K/mm3 (0.84-5.20); LYMPHOCYTES PERCENT AUTO 6 % (21-46); MONOCYTES ABSOLUTE AUTO 0.60 K/mm3 (0.16-1.47); MONOCYTES PERCENT AUTO 4 % (4-13); Mean Corpuscular HGB Conc 33.5 g/dL (31.5-36.5); Mean Corpuscular Volume 91 fL (80-100); NEUTROPHILS ABSOLUTE AUTO 11.15 K/mm3 (1.96-9.15); NEUTROPHILS PERCENT AUTO 82 % (41-73); NRBC ABSOLUTE 0.05 K/mm3 (0.00-0.02); NRBC Auto 0.4 /100 WBC (0.0-0.2); Platelet Count 102 K/mm3 (150-400); RDW Coefficient Variation 16.1 % (11.7-14.2); RDW Standard Deviation 49.9 fL (35.1-46.3)
[2025-04-17 05:06] LABS: Alanine Aminotransfer (ALT/SGP 27.0 U/L (12-78); Albumin, Blood 1.6 g/dL (3.4-5.0); Albumin/Globulin Ratio 0.6 (0.8-1.8); Anion Gap 7.0 mmol/L (3-11); Aspartate Aminotrans (AST/SGOT 44.0 U/L (12-37); Bilirubin, Total 0.9 mg/dL (0.1-1.0); Blood Urea Nitrogen 17.0 mg/dL (8-24); CO2, Blood 24.0 mmol/L (21-32); Calcium, Blood 7.1 mg/dL (8.5-10.1); Chloride, Blood 116.0 mmol/L (98-108); Creatinine, Blood 1.1 mg/dL (0.60-1.20); Globulin, Blood 2.8 g/dL (2.2-4.0); Glucose, Blood 92.0 mg/dL (70-99); Potassium, Blood 3.5 mmol/L (3.5-5.5); Sodium, Blood 143.0 mmol/L (136-145); Total Protein, Blood 4.4 g/dL (6.4-8.2)
--- NOTE | 2025-04-17 06:25 | NUR ---
SHIFT SUMMARY PATIENT REMAINS ALERT AND ORIENTED THROUGH THE NIGHT, VERY PLEASANT AND COOPERATIVE. WEAKNESS THROUGHOUT BUT ABLE TO FOLLOW COMMANDS. SP02 96% ON RA, DENIES SOB. ATTEMPTED THIN LIQUID MEDS PER EMAR WITH PATIENT WITH SPOON AND CHIN TUCKED AT START OF SHIFT AND THE MOUTH SWABS, PATIENT COUGHING AFTER EACH AND APPEARS TO BE ASPIRATING, TOLERATES APPLESAUCE WELL. HR SB 50s-60s, LEVOPHED REMAINS ON TO MAINTAIN MAP >65. BLADDER SCAN DONE TWICE THIS SHIFT, <400 MLS EACH TIME, PATIENT HAS NO URGE TO VOID. REPOSITONED SIDE TO SIDE Q2 HOURS. CALL LIGHT IN REACH
[2025-04-17] MEDS ORDERED: Folic Acid 1 MG TAB PO SCH (09:00)
[2025-04-17] MEDS ORDERED: Polyethylene Glycol 3350 17 gm PO PRN (10:40)
--- NOTE | 2025-04-17 13:05 | NUR ---
PALLIATIVE CARE VISIT: REQUESTED TO VISIT PT TO DISCUSS GOC DUE TO FAILED SWALLOW EVAL TODAY. DISCUSSED POTENTIAL NEED FOR PEG TUBE PLACEMENT. EDUCATED PT ON POTENTIAL CANCER TREATMENT AND NUTRITIONAL REQUIREMENTS NEEDED FOR SUCH A TREATMENT FOR HEALING PURPOSES. PT V/U. HE STATES HE WANTS TO MOVE FORWARD WITH GETTING BONE BIOPSY. DEPENDANT ON WHAT ONCOLOGY SAYS IS REQUIRED FOR TREATMENT AND PROGNOSIS HE MAY BE WILLING TO HAVE A PEG TUBE INSERTED IF NEEDED FOR NUTRITIONAL NEEDS TO GET HIM THROUGH CANCER TREATMENT. PT STATES HE UNDERSTANDS HIS CANCER IS LIFE LIMITING BUT TREATMENT WILL PROVIDE HIM WITH TIME TO GET HIS AFFAIRS IN ORDER. PT STATES CHRIS IS HEALTH HYDRAULIC SPINNER. ACCORDING TO PT THIS IS ON RECORD, BUT NO SUCH DOCUMENT WAS FOUND. WILL RE-ADDRESS WITH PT. DISCUSSED SYMPTOM MANAGEMENT. PT STATES HIS PAIN IS CONTROLLED, HOWEVER HE FEELS LIKE HE NEEDS TO BE REPOSITIONED MORE FREQUENTLY THAN TWO HOURS DUE TO STIFFENING UP. PT STATES ALL OTHER SYMPTOMS ARE MANAGED. PT WOULD APPRECIATE A NECK PILLOW. PT IS ALSO FRUSTRATED HE CANNOT URINATE WELL, HE DID START FLOMAX THIS MORNING TO BE DETERMINED IF IT IS EFFECTIVE. UPDATED PAYROLL SPECIALIST AND MD. WILL PROVIDE NECK PILLOW.
--- NOTE | 2025-04-17 15:16 | NUR ---
DR. MOJICA UPDATED- PT RIGORS RETURN DURING ECHO. PT TEMP 99.4. AWAITING ORDERS FOR TORADOL
--- NOTE | 2025-04-17 16:04 | NUR ---
DARK STOOL, BARIUM SWALLOW RESULTS, UPDATE ON DR. OWENS ROUNDING: NOTIFIED DR. GODOY THAT THE PATIENT HAD HAD A VERY DARK STOOL TODAY. NO NEW ORDERS. DR. GODOY ALREADY AWARE OF BARIUM SWALLOW RESULTS. HE REPORTED THAT HE WILL ADD FLUIDS/IV NUTRITION AFTER SOME REVIEW. UPATED DR. GODOY ON THE VISIT FROM DR. OWENS. AT THIS TIME, DR. OWENS DID NOT WANT TO MAKE ANY CHANGES TO THE PATIENT'S ORDERS OTHER THAN DISCONTINUING THE MIDODRINE IN REGARDS TO OCCASIONAL OFELIA LOW 38 BPM.
--- NOTE | 2025-04-17 16:23 | NUR ---
PALLIATIVE CARE NOTE: ADVANCE DIRECTIVE WAS ON CHART. MADE A COPY TO SEND TO MEDICAL RECORDS TO BE UPLOADED TO RECORD.
[2025-04-17] MEDS ORDERED: Pantoprazole Sodium 40 MG Injection IV SCH (18:00)
--- NOTE | 2025-04-17 19:20 | NUR ---
SHIFT SUMMARY: NEURO: PATIENT ALERT AND ORIENTED X4 THROUGHOUT THE SHIFT TODAY. PATIENT UP TO THE CHAIR WITH THIS RN AND PT, FWW, AND GAIT BELT. PATIENT VERY FATIGUED AFTER THIS. ABLE TO STAY UP IN THE CHAIR FOR A COUPLE HOURS. PATIENT TOLERATED BARIUM SWALLOW AND BONE BIOPSY. CARDIAC: PATIENT CONTINUED TO NEED LEVOPHED TO MAINTAIN MAPS >65. DR. OWENS NOTIFIED OF OCCASIONAL OFELIA LOW 38 BPM. HE ROUNDED ON THE PATIENT. MIDODRINE DISCONTINUED. RESPIRATORY: PATIENT STABLE ON ROOM AIR WITH SPO2 92-100%. PATIENT DENIED SHORTNESS OF BREATH AT REST OR WITH ACTIVITY. GI/: PATIENT FAILED BARIUM SWALLOW. NOTIFIED DR. GODOY. CHAIR UPHOLSTERER CONSULT ORDERED AND SOME PO MEDICATIONS TRANSITIONED TO IV. PATIENT CONTINUES TO RETAIN URINE. PATIENT REPORTS THAT HE HAS NO SENSATION INDICATING A FULL OR EMPTY BLADDER. INCONTINENT OF VERY DARK MEDIUM SOFT BOWEL MOVEMENT. PSYCHSOCIAL: PATIENT CALM AND COOPERATIVE. PATIENT ABLE TO MAKE HIS NEEDS KNOWN. PATIENT WITHDRAWN AND FATIGUED.
[2025-04-17] MEDS ORDERED: D5W-1/2NS 1,000 ML IV SCH (19:35)
--- NOTE | 2025-04-17 21:31 | NUR ---
ASSUMED CARE THIS RN ASSUMED CARE OF PT @ APPROXIMATELY 1900. PT SLEEPING BUT ARROUSABLE, WHEN AWAKE ALERT AND ORIENTED X4. PT ON RA WITH SPO2 >95% AND DENIES SOB. SBP IN THE 110'S WITH MAP >65 AND LEVOPHED INFUSING INTO LIJ CENTRAL LINE @ 2MCG/MIN, SINUS ARHYTHMIA AND HR IN THE 60'S. PT HAS MEPILEX TO ALL BONY PROMINENCES. PT DENIES ANY PAIN AT THIS TIME. CALL LIGHT CARLYHTIN REACH, NO IMMEDIATE CONCERNS NOTED AT THIS TIME. SEE SHIFT ASSESSMENT FOR FULL DETAILS.
[2025-04-18] VITALS (80 sets, daily range): BP systolic 93–156; BP diastolic 27–123
[2025-04-18 03:35] LABS: BASOPHILS ABSOLUTE AUTO 0.02 K/mm3 (0.00-0.23); BASOPHILS PERCENT AUTO 0 % (0-2); EOSINOPHILS ABSOLUTE AUTO 0.15 K/mm3 (0.00-0.68); EOSINOPHILS PERCENT AUTO 1 % (0-6); Hematocrit 21.9 % (37.0-53.0); Hemoglobin 7.3 g/dL (13.5-17.5); IMMATURE GRAN ABSOLUTE AUTO 0.40 K/mm3 (0.00-0.10); IMMATURE GRAN PERCENT AUTO 3 % (0-1); LYMPHOCYTES ABSOLUTE AUTO 0.57 K/mm3 (0.84-5.20); LYMPHOCYTES PERCENT AUTO 5 % (21-46); MONOCYTES ABSOLUTE AUTO 0.62 K/mm3 (0.16-1.47); MONOCYTES PERCENT AUTO 5 % (4-13); Mean Corpuscular HGB Conc 33.3 g/dL (31.5-36.5); Mean Corpuscular Volume 92 fL (80-100); NEUTROPHILS ABSOLUTE AUTO 10.65 K/mm3 (1.96-9.15); NEUTROPHILS PERCENT AUTO 86 % (41-73); NRBC ABSOLUTE 0.03 K/mm3 (0.00-0.02); NRBC Auto 0.2 /100 WBC (0.0-0.2); Platelet Count 118 K/mm3 (150-400); RDW Coefficient Variation 15.9 % (11.7-14.2); RDW Standard Deviation 51.0 fL (35.1-46.3)
[2025-04-18 03:52] LABS: Alanine Aminotransfer (ALT/SGP 24.0 U/L (12-78); Albumin, Blood 1.5 g/dL (3.4-5.0); Albumin/Globulin Ratio 0.5 (0.8-1.8); Anion Gap 4.0 mmol/L (3-11); Aspartate Aminotrans (AST/SGOT 36.0 U/L (12-37); Bilirubin, Total 0.7 mg/dL (0.1-1.0); Blood Urea Nitrogen 13.0 mg/dL (8-24); CO2, Blood 26.0 mmol/L (21-32); Calcium, Blood 6.9 mg/dL (8.5-10.1); Chloride, Blood 115.0 mmol/L (98-108); Creatinine, Blood 1.01 mg/dL (0.60-1.20); Globulin, Blood 2.8 g/dL (2.2-4.0); Glucose, Blood 141.0 mg/dL (70-99); Potassium, Blood 3.3 mmol/L (3.5-5.5); Sodium, Blood 142.0 mmol/L (136-145); Total Protein, Blood 4.3 g/dL (6.4-8.2)
[2025-04-18] MEDS ORDERED: Lidocaine 2% Jelly Uro-Jet UR ONE (05:00)
--- NOTE | 2025-04-18 06:25 | NUR ---
SHIFT SUMMARY PT SLEEPING T/O THE NIGHT. ARROUSSBLE WITH VERBAL STIMULI. WHEN AWAKE PT IS ALERT AND ORIENTED X4, ABLE TO MAKE NEEDS KNOWN, AND FOLLOWS COMMANDS. PT ON RA AND TOLERATING WELL WITH SPO2 >95%, DENIES SOB. SBP IN THE 120'S, SINUS ARRYTHMIA WITH OCASSIONAL PVC'S, HR IN THE 60'S WITH OCASSIONAL BRADYCARDIA INTO THE 40S-50S, PT DENIES CHEST PAIN/PRESSURE.PT RECIEVED Q6 BLADDER SCANS, LAST SCAN OF 491 ML, PER PROVIDER THIS RN PLACED GREEN CATHETER. MEPILEX IN PLACE ON ALL BONY PROMINENCES. LABS RESULTED IN POTASSIUM OF 3.3, PER PROVIDER ORDER 40 MEQ KCL IV X1 INFUSING NOW. LEVOPHED GTT INFUSING @ 2MCG/MIN NOW, D5 1/2 NS GTT INFUSING NOW @ 100ML/HR. CALL LIGHT WIHTIN REACH. NO IMMEDIATE CONCERNS NTOED AT THIS TIME. WILL REPORT TO ONCOMING RN.
--- NOTE | 2025-04-18 07:30 | NUR ---
ASSUMED CARE THIS RN ASSUMED CARE OF PATIENT AT 0700 WITH PRECECPTOR TANO GRAJEDA. PATIENT IS RESTING, EYES CLOSED WITH HOB ELEVATED TO 30. PATIENT IS ON RA WITH SPO2 >98%. HIS RESPIRATIONS ARE EVEN AND UNLABORED. SYSTOLIC BP >110S. MAP >65. HE IS ON LEVOPHED @ 2MCG/MIN. D5 1/2NS @ 100ML/HR. THE MONITOR SHOWS AN IRREGULAR HR AT 60-70. HE HAS A GREEN IN PLACE DRAINING CLEAR YELLOW URINE TO GRAVITY. BED IN LOWEST POSITION, CALL LIGHT IN REACH.
[2025-04-18] MEDS ORDERED: TPN Consult Notification XX ONE (15:25)
[2025-04-18 16:42] LABS: Magnesium, Blood 1.6 mg/dL (1.6-2.4); Phosphorus, Blood 1.3 mg/dL (2.5-4.9)
[2025-04-18] MEDS ORDERED: Parenteral Electolytes 40 ML,POTASSIUM PHOS,M-BASIC-D-BASIC 30 MMOL,Multivitamins 10 ML... IV SCH (17:00)
--- NOTE | 2025-04-18 17:33 | NUR ---
PALLIATIVE CARE VISIT: ROUNDED ON PT. HE WAS SLEEPING. IN NO APPARENT DISTRESS, RR E/U. CALLED MD AND DISCUSSED CONCERNS FOR CALCIUM LEVEL DROPPING AND NOW AT 6.[address] LEVEL 1.5. [address] GODOY AWARE.
--- NOTE | 2025-04-18 18:01 | NUR ---
SHIFT SUMMARY PATIENT HAS BEEN ALERT AND ORIENTED X4 ALL SHIFT. HE'S BEEN COOPERATIVE WITH CARE AND PARTICPATED IN DECISION MAKING. HE HAS NOT HAD ANY ACUTE EVENTS THROUGH THE DAY. PATIENT IS ON RA WITH SPO2 >96%. HIS RESPIRATIONS HAVE BEEN EVEN AND UNLABORED. HIS SYSTOLIC BP >90, WIH MAP >65. HE HAS D5 1/2 NS AT 100ML/HR. HR HAS BEEN BETWEEN 60-90S WITH INTERMITTENT RUNS OF BRADYCARDIA. MONITOR SHOW SINUS ARRYTHMIA WITH PVCS. PROVIDER AND CARDIOLOGY WAS NOTIFIED. PATIENT IS ON TPN AT 75ML/HR. OTHERWISE, ONE BM THIS SHIFT. TEMP GREEN IS PATENT AND DRAINING CLEAR YELLOW URINE TO GRAVITY. CALL LIGHT IN REACH, BED IN LOWEST POSITION.
[2025-04-19] VITALS (40 sets, daily range): BP systolic 95–143; BP diastolic 55–115
[2025-04-19 04:23] LABS: BASOPHILS ABSOLUTE AUTO 0.01 K/mm3 (0.00-0.23); BASOPHILS PERCENT AUTO 0 % (0-2); EOSINOPHILS ABSOLUTE AUTO 0.14 K/mm3 (0.00-0.68); EOSINOPHILS PERCENT AUTO 1 % (0-6); Hematocrit 20.8 % (37.0-53.0); Hemoglobin 7.1 g/dL (13.5-17.5); IMMATURE GRAN ABSOLUTE AUTO 0.30 K/mm3 (0.00-0.10); IMMATURE GRAN PERCENT AUTO 3 % (0-1); LYMPHOCYTES ABSOLUTE AUTO 0.72 K/mm3 (0.84-5.20); LYMPHOCYTES PERCENT AUTO 7 % (21-46); MONOCYTES ABSOLUTE AUTO 0.53 K/mm3 (0.16-1.47); MONOCYTES PERCENT AUTO 5 % (4-13); Mean Corpuscular HGB Conc 34.1 g/dL (31.5-36.5); Mean Corpuscular Volume 91 fL (80-100); NEUTROPHILS ABSOLUTE AUTO 9.10 K/mm3 (1.96-9.15); NEUTROPHILS PERCENT AUTO 84 % (41-73); NRBC ABSOLUTE 0.00 K/mm3 (0.00-0.02); NRBC Auto 0.0 /100 WBC (0.0-0.2); Platelet Count 134 K/mm3 (150-400); RDW Coefficient Variation 15.4 % (11.7-14.2); RDW Standard Deviation 48.8 fL (35.1-46.3)
[2025-04-19 05:19] LABS: Alanine Aminotransfer (ALT/SGP 22 U/L (12-78); Albumin, Blood 1.5 g/dL (3.4-5.0); Albumin/Globulin Ratio 0.5 (0.8-1.8); Anion Gap 7 mmol/L (3-11); Aspartate Aminotrans (AST/SGOT 33 U/L (12-37); Bilirubin, Total 0.6 mg/dL (0.1-1.0); Blood Urea Nitrogen 12 mg/dL (8-24); CO2, Blood 23 mmol/L (21-32); Calcium, Blood 6.9 mg/dL (8.5-10.1); Chloride, Blood 112 mmol/L (98-108); Creatinine, Blood 0.90 mg/dL (0.60-1.20); Globulin, Blood 2.8 g/dL (2.2-4.0); Glucose, Blood 107 mg/dL (70-99); Potassium, Blood 3.7 mmol/L (3.5-5.5); Sodium, Blood 138 mmol/L (136-145); Total Protein, Blood 4.3 g/dL (6.4-8.2); Triglycerides 70 mg/dL (30-160)
--- NOTE | 2025-04-19 05:56 | NUR ---
SHIFT SUMMARY PT AWAKE OFF AND ON T/O NIGHT, ORIENTED X4, FOLLOWS COMMANDS ABLE WITH SEVERE GENERALIZED WEAKNESS, ENCOURAGED TO ASSIST WITH TURNS MUCH POSSIBLE TO BUILD STRENGTH. USING SIDE RAIL TO REPOSITION SELF FOR COMFORT. DENIES PAIN OR DISTRESS. VSS, LEVOPHED HAS REMAINED OFF T/O NIGHT. AFEBRILE. SOME LAB RESULTS STILL PENDING, WILL CONTINUE TO MONITOR FOR RESULTS AND UPDATE DAY RN WITH ALL OUTSTANDING ISSUES AND PROBLEMS TO DATE.
--- NOTE | 2025-04-19 07:15 | NUR ---
ASSUMED CARE THIS RN ASSUMED CARE OF PT AT 0700 WITH PRECEPTOR TARAS FREEDMAN. PATIENT WAS RESTING WITH EYES CLOSED DURING BSSR. HIS SPO2 IS >96% ON RA. RESPIRATIONS ARE EVEN AND UNLABORED. HIS HR IS 70-80S IRREGULAR WITH FREQUENT PVCS ON THE MONITOR. SYSTOLIC BP >90, MAP >65. HE IS ON D5 1/2 AT 100ML AND CPN AT 75ML/HR. GREEN CATHETER IS PATENT AND DRAINING CLEAR YELLOW URINE TO GRAVITY. BED IN LOWEST POSTION. CALL LIGHT IN REACH.
[2025-04-19] MEDS ORDERED: Potassium Phosphate Dibasic 15 MM in Dextrose 5% 250 ML IV STA (08:31)
[2025-04-19] MEDS ORDERED: CALCIUM GLUC IN NACL, ISO-OSM 50 ML IV ONE (08:35)
[2025-04-19 11:30] LABS: Anti-Xa UFH, PHA Monitoring <0.10 IU/mL
[2025-04-19] MEDS ORDERED: Heparin Sodium,Porcine/0.5 NS 500 ML IV SCH (11:35)
[2025-04-19 11:46] LABS: Magnesium, Blood 1.8 mg/dL (1.6-2.4)
[2025-04-19 11:47] LABS: Phosphorus, Blood 1.6 mg/dL (2.5-4.9)
--- NOTE | 2025-04-19 16:02 | NUR ---
Spiritual Care Visit. Pt. is awake in bed and welcomes my visit. Pt. is super pleasant. Facilitated an update. Pt. was articulating his understanding of a diagnosis that has been changing from his perspective. Listen with empathy and a calimg presence as I attempt to normalize the Pt. experience. Prayed with the Pt. Pt. verbalized gratitude fo rthe spiritual care visit and verbalized that he was blessed by it.
[2025-04-19 17:54] LABS: Hematocrit 26.4 % (37.0-53.0); Hemoglobin 8.8 g/dL (13.5-17.5); Mean Corpuscular HGB Conc 33.3 g/dL (31.5-36.5); Mean Corpuscular Volume 90 fL (80-100); NRBC ABSOLUTE 0.00 K/mm3 (0.00-0.02); NRBC Auto 0.0 /100 WBC (0.0-0.2); Platelet Count 144 K/mm3 (150-400); RDW Coefficient Variation 15.0 % (11.7-14.2); RDW Standard Deviation 47.8 fL (35.1-46.3)
--- NOTE | 2025-04-19 18:30 | NUR ---
SHIFT SUMMARY PATIENT HAS BEEN MORE TIRED THIS SHIFT AND HAS DECLINED GETTING UP TO BEDSIDE RECLINER. HE IS A&Ox4, ANSWERS QUESTIONS APPROPRIATELY AND PARTICIPATES IN CARE. HOWEVER, HE HAS BEEN MORE WITHDRAWN SINCE GETTING HIS CANCER DIAGNOSIS AND IS ANXIOUSLY AWAITING ONCOLOGY TO DECIDE HIS TREATMENT PLAN. HIS SPO2 HAS BEEN >96% ON RA. HIS SYSTOLIC BP HAS BEEN >110 AND MAP >65. PATIENT'S HR IS IRREGULAR 60-70S W/ PVCS ON MONITOR. PT WAS DIAGNOSED WITH DVT TODAY HE'S ON HEPARIN 15.1ML/HR (12/U/KG/HR) AND CPN 75ML/HR. HIS GREEN IS PATENT AND DRAINING CLEAR YELLOW URINE TO GRAVITY. CALL LIGHT IN REACH. BED IN LOWEST POSITION.
[2025-04-19] MEDS ORDERED: Dose Adjust by Pharmacy XX STA (18:43)
[2025-04-20] VITALS (72 sets, daily range): BP systolic 81–169; BP diastolic 39–138
[2025-04-20 01:08] LABS: Hematocrit 26.0 % (37.0-53.0); Hemoglobin 8.9 g/dL (13.5-17.5); Platelet Count 150 K/mm3 (150-400)
[2025-04-20] MEDS ORDERED: Dose Adjust by Pharmacy XX STA ×4 (01:47→23:30)
[2025-04-20 04:27] LABS: Anion Gap 7.0 mmol/L (3-11); Blood Urea Nitrogen 17.0 mg/dL (8-24); CO2, Blood 22.0 mmol/L (21-32); Calcium, Blood 7.3 mg/dL (8.5-10.1); Chloride, Blood 111.0 mmol/L (98-108); Creatinine, Blood 0.85 mg/dL (0.60-1.20); Glucose, Blood 91.0 mg/dL (70-99); Potassium, Blood 4.0 mmol/L (3.5-5.5); Sodium, Blood 136.0 mmol/L (136-145)
--- NOTE | 2025-04-20 06:26 | NUR ---
SHIFT SUMMARY PT CON'T TO BE A/O X4, FOLLOWS COMMANDS APPROP, ABLE TO MAKE NEEDS KNOWN. VSS T/O NIGHT. HEPARIN GTT INFUSING PER PHARMACY, CURRENTLY AT 16 U/HR. TAKING OCCAS SPOONFULS OF H[address] INSTRUCTIONS. NO COUGHING OR OBVIOUS SIGNS OF ASPIRATION NOTED. TALING PO PILLS CRUSHED IN APPLESAUCE WITHOUT ISSUE, WELL. LEFT LEG CON'T TO BE MORE EDEMATOUS THAN RIGHT. NO C/O PAIN OR DISCOMFORT. WILL UPDATE DAY RN WITH ALL OUTSTANDING ISSUES AND PROBLEMS TO DATE.
[2025-04-20 09:05] LABS: Magnesium, Blood 1.9 mg/dL (1.6-2.4); Phosphorus, Blood 1.9 mg/dL (2.5-4.9)
--- NOTE | 2025-04-20 09:10 | NUR ---
PT OPTED TO HAVE A PUREE DIET AND EAT. DR. GODOY AND ST [facility] AT BEDSIDE WHEN THE PT STATED HE WANTS TO EAT FOOD DESPITE THE RISK OF ASPIRATION. DR. GODOY AND JET EDUCATED THE PT ABOUT LIKELYHOOD OS ASPIRATING AND WHAT THAT MEANS. THE PT STILL WANTS TO EAT. THE PT STATED HE WANTED TO BE ON A PUREE DIET AND AND WOULD STILL DO SPOON FED LIQUIDS. ORDERS CHANGED. ALSO, THE PT'S FRIENDS WALKED IN THE ROOM AT THE END OF THE CONVERSATION AND WERE UPDATED ON CHANGES BY DR. GODOY. SEE NOTES FOR UPDATES.
[2025-04-20] MEDS ORDERED: Metoprolol Tartrate 5 ML IV ONE (10:38)
[2025-04-20] MEDS ORDERED: Metoprolol Tartrate 1 MG/ML 5 ML VIAL IV ONE (10:40)
--- NOTE | 2025-04-20 10:45 | NUR ---
CONVERTED TO AFIB RVR ABOUT 1030 THE PT CONVERTED TO AFIB RVR 170'S. THIS RN, BREAK TARAS ENCISO, AND ORDER SCHEDULE CLERK SEAN, WENT AND SAW THE PT RESTING IN THE ROOM WITH CLOSE PARUL REYES AT BEDSIDE. THIS RN DID HAVE THE PT ATTEMPT TO BLOW ON AN EMPTY 10CC SYRINGE AND ORDER SCHEDULE CLERK MORRIS ATTEMPTED TO HAVE THE PT BEAR DOWN WITH HIS CHEST. WITHOUT SUCCESS, ZARIA KEITA RN CALLED DR. GODOY. EKG WAS PREFORMED AND PT WAS FOUND TO BE IN AFIB RVR. DR. GODOY CAME TO BEDSIDE AND ORDERED 2.5MG IV LOPRESSOR PUSH X2 OVER THE SPAN OF ABOTU TEN MINUTES. THE PT DID CONVERT BACK TO SR. BLOOD PRESSURE LABILE BUT STABLE AND MAP >60. THE PT DID REMAIN ASYMPTOMATIC DURING THIS EVENT. HE DENIES PALPITATIONS, CHEST PAIN, DIZZINESS, OR LIGHT HEADEDNESS. FAMIYL UPDATED AT BEDSIDE. LALI GLUC STARTED PER EMAR. SEE NOTES FOR ANY UPDATES.
[2025-04-20] MEDS ORDERED: CALCIUM GLUC IN NACL, ISO-OSM 50 ML IV ONE (10:55)
--- NOTE | 2025-04-20 13:34 | NUR ---
ASSUMPTION OF CARE BEDSIDE REPORT RECIEVED FROM WILDER GRAJEDA DURING REPORT THE PT AWOKE TO VERBLE STIMULI AND ENGAGED IN BEDSIDE REPORT. HE IS A&OX4, AND IS ABLE TO FOLLOW CONVERSATION, DIRECTIONS, AND APPEARS TO HAVE A GOOD UNDERSTANDING OF HIS HOSPITALIZATION. DURING BEDSIDE REPORT THE PT TOLD THIS RN THAT AN ATTORNY WILL COMING IN TO DISCUSS HIS WILL AROUND 1000 WITH HIS FRIEND AMY. THE ON TELE THE PT IS SR W/ MULIPLE PVC'S AND IS APPEARING TO HAVE SOME RUNS OF BIGEMENY. BP STABLE. THE PT DENIES ANY ANGINA OR CHEST PRESSURE. HE IS ON RA W/SP02 >93%. THE PT DENIES ANY SOB. HE HAS A LIJ W/ CPN, AND HEPARIN INFUSING PER EMAR. BED IS IN LOW, CALL LIGHT IS IN REACH, AND THREE SIDE RAILS UP. SEE NURSE NOTES FOR ANY UPDATES.
--- NOTE | 2025-04-20 13:57 | NUR ---
MORNING SUMMARY THE PT REMAINS A&OX4, CALLING APPRORPAITEY, AND MAKING HIS NEEDS KNOWN. SEE PREVIOUS NOTES ABOUT DIET CHANGE, AFIB RVR EVENT, AND ATTORNY VIST. THE PT HAS REMAINED SB/SR 50'S-80'S AND BP IS LABILE. MAP REMAINS >65 AND BEEN IMPROVING. ORTHO WAS CONSULTED FOR WEIGHT BEARING ORDERS FOR THIS PT, AWAITING FOR DR. LEE TO ROUND AT THIS TIME. THE PT TOLERATED HIS PUREED LUNCH TODAY AND DID NOT HAVE AN EPISODE OF COUGHING OR ASPIRATION. CPN HAS BEEN D/C'D. HEPARIN TITRAITED PER EMAR. THE PT CONSENTED TO HAVE A PICC LINE PLACED TODAY AND FOR HIS LIJ TO BE REMOVED. ASSISTANT HALL DIRECTOR MORRIS Marr PLACED A RA PICC LINE. THE PT WAS GOING TO BE DOWN GRADED TO PCU TODYA, BUT DR. GODOY AND THE TEAM OPTED TO KEEP HIM IN ICU D/T THE EPISODE OF AFIB RVR WITH LABILE PRESSURES. PT AND HIS FRIEND AMY HAVE BEEN UPDATED ON CARE. SEE NOTES FOR UPDATES.
[2025-04-20] MEDS ORDERED: Cefepime HCl 2,000 MG in NS 100 ML IV SCH (16:00)
[2025-04-20] MEDS ORDERED: Sucralfate 1000MG / 10ML UD BTL PO SCH (16:30)
--- NOTE | 2025-04-20 17:33 | NUR ---
END OF SHIFT UPDATES THE PT REMAINS A&OX4, CALLS APPROPRIATELY, AND MAKES HIS NEEDS KNOWN. HE REMAINS BEDREST AT THIS TIME UNTIL ORTHO STATES WEIGHT BEARING PERCAUTIONS. ON THE MONITOR, THE PT IS SB/SR 50'S-70'S. BP HAS BEEN LABILE BUT STABLE. HE HAS BEEN ON RA AND DENIES ANY SOB. ABOUT 14OO THE PT DID START DEVELOPING A COUGH. NOTED COUGHING WHILE EATING DINNER THIS EVENING. THE PT DID HAD HIS LIJ REMOVED BY CARE ASSOCIATE THIS EVENING AND HAS A RA PICC LINE. HEPARIN GTT INFUSING PER EMAR, MULTI TITRATIONS THIS SHIFT (SEE EMAR). CHEST CT W/ CONTRAST ORDERED PER DR. MARS. DR. GODOY WAS MADE AWARE OF RESULTS WELL. THE PT HAS HAD HIS CLOSE PARUL REYES AT BEDSIDE ABOUT HALF THE SHIFT AND HAS BEEN UPDATED ON CARE. SEE NOTES FOR UPDATES.
--- NOTE | 2025-04-20 19:06 | NUR ---
DR. BUSTILLO CAME TO BEDSIDE AND EVVALUATED THE PT. DR. BUSTILLO DID "DEROOF THE LEFT HEEL BLISTER COVERING A PRESSURE WOUND" WHILE AT BEDSIDE. HE PLACED WOUND CARE ORDERS FOR THE PT'S FEET AND ORDERED AN ARTERIAL STUDY FOR LOWER EXTREMITIES. DRESSINGS CHANGES ON THE PT'S BILATERAL FEET PER ORDERS.
--- NOTE | 2025-04-20 21:37 | NUR ---
ASSUMPTION OF CARE: ASSUMED CARE AT START OF SHIFT (1899). REPORT RECEIVED FROM DAY SHIFT RN. PT IS DOING WELL AND RESTING IN BED. PT IS ALERT AND FOLLOWING COMMANDS. PT DENIES ANY PAIN, CP, OR SOB AT THIS TIME. LUNG SOUNDS ARE CLEAR AND EQUAL, ON RA WITH SPO2 >95%. IRREGULAR HR WITH SBP: 90-100'S MAP >65 HR: 50-60'S. IV: PICC LINE IN LUE. GREEN CATHETER IN PLACE AND DRAINING TO GRAVITY. LINES AND CORDS PLACED OUT OF REACH. CALL LIGHT PLACED WITHIN REACH.
[2025-04-21] VITALS (88 sets, daily range): BP systolic 83–200; BP diastolic 38–167
--- NOTE | 2025-04-21 06:22 | NUR ---
SHIFT SUMMARY: PT IS DOING WELL AND RESTING IN BED. NO ACUTE CHANGES THROUGHOUT THE SHIFT. PT WAS ABLE TO SLEEP PART OF THE NIGHT. VITAL SIGNS REMAIN STABLE. PICC LINE IN LUE. GREEN CATHETER IN PLACE AND DRAINING TO GRAVITY. LINES AND CORDS PLACED OUT OF REACH. CALL LIGHT PLACED WITHIN REACH.
[2025-04-21 06:24] LABS: BASOPHILS ABSOLUTE AUTO 0.02 K/mm3 (0.00-0.23); BASOPHILS PERCENT AUTO 0 % (0-2); EOSINOPHILS ABSOLUTE AUTO 0.11 K/mm3 (0.00-0.68); EOSINOPHILS PERCENT AUTO 1 % (0-6); Hematocrit 24.5 % (37.0-53.0); Hemoglobin 8.2 g/dL (13.5-17.5); IMMATURE GRAN ABSOLUTE AUTO 0.22 K/mm3 (0.00-0.10); IMMATURE GRAN PERCENT AUTO 2 % (0-1); LYMPHOCYTES ABSOLUTE AUTO 0.77 K/mm3 (0.84-5.20); LYMPHOCYTES PERCENT AUTO 7 % (21-46); MONOCYTES ABSOLUTE AUTO 0.78 K/mm3 (0.16-1.47); MONOCYTES PERCENT AUTO 7 % (4-13); Mean Corpuscular HGB Conc 33.5 g/dL (31.5-36.5); Mean Corpuscular Volume 90 fL (80-100); NEUTROPHILS ABSOLUTE AUTO 8.68 K/mm3 (1.96-9.15); NEUTROPHILS PERCENT AUTO 82 % (41-73); NRBC ABSOLUTE 0.00 K/mm3 (0.00-0.02); NRBC Auto 0.0 /100 WBC (0.0-0.2); Platelet Count 164 K/mm3 (150-400); RDW Coefficient Variation 15.3 % (11.7-14.2); RDW Standard Deviation 48.8 fL (35.1-46.3)
[2025-04-21 06:35] LABS: Magnesium, Blood 1.9 mg/dL (1.6-2.4)
[2025-04-21 06:36] LABS: Alanine Aminotransfer (ALT/SGP 59.0 U/L (12-78); Albumin, Blood 1.6 g/dL (3.4-5.0); Albumin/Globulin Ratio 0.5 (0.8-1.8); Anion Gap 7.0 mmol/L (3-11); Aspartate Aminotrans (AST/SGOT 103.0 U/L (12-37); Bilirubin, Total 0.6 mg/dL (0.1-1.0); Blood Urea Nitrogen 18.0 mg/dL (8-24); CO2, Blood 22.0 mmol/L (21-32); Calcium, Blood 7.3 mg/dL (8.5-10.1); Chloride, Blood 111.0 mmol/L (98-108); Creatinine, Blood 0.85 mg/dL (0.60-1.20); Globulin, Blood 3.1 g/dL (2.2-4.0); Glucose, Blood 87.0 mg/dL (70-99); Phosphorus, Blood 1.8 mg/dL (2.5-4.9); Potassium, Blood 3.9 mmol/L (3.5-5.5); Sodium, Blood 136.0 mmol/L (136-145); Total Protein, Blood 4.7 g/dL (6.4-8.2)
[2025-04-21] MEDS ORDERED: Dose Adjust by Pharmacy XX STA (06:52)
[2025-04-21] MEDS ORDERED: Potassium Phosphate Dibasic 30 MM in Dextrose 5% 500 ML IV STA (07:44)
--- NOTE | 2025-04-21 08:26 | NUR ---
Pt. is awake in his bed when he welcomes my visit. No visitors are present. Pt. is pleasant. Facilitated a small update. Pt. displayed evidence of gratitude for both his friends and for the care he is receiving. Prayed with the Pt. Pt. verbalized gratitude for the spiritual care visit.
--- NOTE | 2025-04-21 09:36 | NUR ---
ASSUMED CARE NOTE: ASSUMED CARE OF PT AT 0700, PT IS ALERT AND ORIENTED X 4 , ABLE TO FOLLOW COMMANDS AND COMMUNICATE NEEDS. PT ON RA WITH SPO2 ABOVE 92% NO RESP DISTRESS NOTED. PT IN AFIB WITH HR IN THE 60-70'S, MAP'S ABOVE 65. PT DENIES ANY PAIN AT THIS TIME. PT ON HEPARIN DRIP AT 21U/KG/HR. PT HAD ONE LOOSE DARK STOOL, MADE AWARE. ACTIVE BT IN QUADRANTS. GREEN PATENT, DRAINING TO GRAVITY. PLAN OF CARE ONGOING.
--- NOTE | 2025-04-21 11:55 | NUR ---
Ethics consultation service requested. Medical history, clinical trajectory, and social constellation reviewed. The permissibility of allowing nurse led oral intake despite the principals aspiration risk discussed. An alignment of understanding was achieved with the relevant stakeholders e.g. the attending provider, the speech therapist, palliative RN, nursing leadership and the bedside RN. A discussion will be conjointly facilitated by Dr Grimm and TARAS Mercado with the principal to revisit goals of care. A recommendation will be made to transition to percutaneous or DOBHOFF with a back up strategy of conducting a time limited trial of oral feeding, if the principal is not amendable to the proposed medical approach. If the latter and less ideal arrangement is pursued, it will be implemented with safeguards in place i.e. if the principal is showing measurable clinical indications of intolerance / aspiration complications, then nurse facilitated oral support will be suspended and the POC re-evaluated. The TLT will be fully explained to the patient so that the expectations are clear.
[2025-04-21 12:44] LABS: Hematocrit 25.8 % (37.0-53.0); Hemoglobin 8.6 g/dL (13.5-17.5); Mean Corpuscular HGB Conc 33.3 g/dL (31.5-36.5); Mean Corpuscular Volume 90 fL (80-100); NRBC ABSOLUTE 0.00 K/mm3 (0.00-0.02); NRBC Auto 0.0 /100 WBC (0.0-0.2); Platelet Count 197 K/mm3 (150-400); RDW Coefficient Variation 15.1 % (11.7-14.2); RDW Standard Deviation 48.3 fL (35.1-46.3)
[2025-04-21 15:25] LABS: Stool Occult Blood Guaiac 1 Pos (Neg)
--- NOTE | 2025-04-21 16:40 | NUR ---
PALLIATIVE CARE VISIT: MET WITH PT IN HIS ROOM. DR. GODOY ALSO PRESENT. INITIALLY WE WERE TO MEET AND DISCUSS NG TUBE FOR NOURISHMENT VS COMFORT FEEDING. WE WERE NOTIFIED PT HAD POSITIVE GUIAC STOOL AND SO WE ALSO DISCUSSED NEED FOR POTENTIAL GI CONSULT TO FIND SOURCE OF BLEEDING AND IVC FILTER FOR BLOOD CLOTS. DR. GODOY DISCUSSED IN DETAIL WITH PT COURSE OF CARE WILL TAKE TIME. ACCORDING TO PT DR. MARS INDICATED HE COULD DO TARGETED BIOLOGICAL CANCER TREATMENT. PT REMAINS HOPEFUL HE WILL GET WELL ENOUGH FROM THIS STAY TO GO HOME AND SEEK CANCER TREATMENT. WE DISCUSSED NEED FOR ADDITIONAL NUTRITIONAL SUPPORT NEEDS OTHER THAN ORAL NUTRITION AND EDUCATED PT ON NUTRITION THROUGH NG TUBE AND HE COULD STILL EAT FOOD ORALLY LONG THERE WERE NO INDICATIONS TO STOP. PT STATED HE DOES NOT WANT AN NG TUBE AT THIS TIME. WE DISCUSSED NEED TO GO TO [facility] FOR TARGETED RADIATION PER ORTHO STANDPOINT AND HIS NEED TO BE ABLE TO MAKE APPOINTMENTS. ON THE ISSUE OF HIS DESIRE TO GO HOME HE STATES HE CAN HIRE CAREGIVERS TO TAKE CARE OF HIM. WE ALSO DISCUSSED HOSPICE A OPTION IF CANCER TREATMENT WAS NOT VIABLE OPTION TO OBTAIN DUE TO HIS CURRENT PROBLEMS -DVT, LOW BP'S, NUTRITIONAL STATUS, WEAKNESS, INFECTION, CANCER WITH METS. WILL GIVE PT SOME TIME TO PROCESS INFORMATION. WILL HAVE WEEKEND PC RN FOLLOW-UP.
[2025-04-21] MEDS ORDERED: Heparin Sodium 1000 Units/ML 10ML MDV ONE (17:50)
[2025-04-21] MEDS ORDERED: NS 500 ML IV ONE (17:50)
[2025-04-21 18:14] LABS: BASOPHILS ABSOLUTE AUTO 0.03 K/mm3 (0.00-0.23); BASOPHILS PERCENT AUTO 0 % (0-2); EOSINOPHILS ABSOLUTE AUTO 0.11 K/mm3 (0.00-0.68); EOSINOPHILS PERCENT AUTO 1 % (0-6); Hematocrit 24.8 % (37.0-53.0); Hemoglobin 8.4 g/dL (13.5-17.5); IMMATURE GRAN ABSOLUTE AUTO 0.27 K/mm3 (0.00-0.10); IMMATURE GRAN PERCENT AUTO 3 % (0-1); LYMPHOCYTES ABSOLUTE AUTO 0.78 K/mm3 (0.84-5.20); LYMPHOCYTES PERCENT AUTO 8 % (21-46); MONOCYTES ABSOLUTE AUTO 0.73 K/mm3 (0.16-1.47); MONOCYTES PERCENT AUTO 7 % (4-13); Mean Corpuscular HGB Conc 33.9 g/dL (31.5-36.5); Mean Corpuscular Volume 91 fL (80-100); NEUTROPHILS ABSOLUTE AUTO 7.93 K/mm3 (1.96-9.15); NEUTROPHILS PERCENT AUTO 81 % (41-73); NRBC ABSOLUTE 0.00 K/mm3 (0.00-0.02); NRBC Auto 0.0 /100 WBC (0.0-0.2); Platelet Count 181 K/mm3 (150-400); RDW Coefficient Variation 15.2 % (11.7-14.2); RDW Standard Deviation 48.3 fL (35.1-46.3)
--- NOTE | 2025-04-21 18:18 | NUR ---
SHIFT SUMMARY: SEE PREVIOUS NOTES. PT IS ALERT AND ORIENTED X 4, ABLE TO COMMUNICATE NEEDS. PT REMAINS ON RA WITH SPO2 ABOVE 95% NO RESP DISTRESS NOTED. PT IN AFIB WITH HR IN THE 60'S, LEVOPHED RESTARTED, SEE FLOWSHEET. ACTIVE BT IN ALL QUADRANTS, 2 LOOSE DARK STOOLS NOTED, GUAIAC POSITIVE, MD AWARE. PT CONTINUES ON HEPARIN DRIP PER JUL. PT MADE NPO PER FOR IR PROCEDURE/GI CONSULT. GREEN PATENT, DRAINING TO GRAVITY. PT REPOSITIONED Q2HRS, PLAN OF CARE ONGOING.
--- NOTE | 2025-04-21 20:00 | NUR ---
ASSUMPTION OF CARE: ASSUMED CARE AT START OF SHIFT (1899). REPORT RECEIVED FROM DAY SHIFT RN. PT RETURNED TO ICU FROM CHEMIST HELPER @ 1930, PT HAD ICV FILTERED PLACED. PROCEDURED WENT WELL AND ACCESS SITE IN R GRION. SITE LOOKS GOOD, NO BLEEDING OR SWELLING NOTED. PT IS ALERT AND FOLLWOING COMMANDS. PT DENIES ANY PAIN, CP, OR SOB AT THIS TIME. LUNG SOUNDS ARE CLEAR AND EQUAL BILATEALLY, ON RA WITH SPO2 >95%. IRREGUALR RYTHM WITH SBP: 80-100'S MAP >65 HR: 60'S ON LEVOPHED GTT PER EMR ORDERS. IV: PICC LINE IN LUE. GREEN CATHTER IN PLACE AND DRAINING TO GRAVITY. LINES, CORDS, AND TUBE PLACED OUT OF REACH. CALL LIGHT PLACED WITHIN REACH.
[2025-04-22] VITALS (73 sets, daily range): BP systolic 89–128; BP diastolic 46–108
[2025-04-22 04:39] LABS: BASOPHILS ABSOLUTE AUTO 0.03 K/mm3 (0.00-0.23); BASOPHILS PERCENT AUTO 0 % (0-2); EOSINOPHILS ABSOLUTE AUTO 0.12 K/mm3 (0.00-0.68); EOSINOPHILS PERCENT AUTO 1 % (0-6); Hematocrit 24.1 % (37.0-53.0); Hemoglobin 8.2 g/dL (13.5-17.5); IMMATURE GRAN ABSOLUTE AUTO 0.21 K/mm3 (0.00-0.10); IMMATURE GRAN PERCENT AUTO 3 % (0-1); LYMPHOCYTES ABSOLUTE AUTO 0.82 K/mm3 (0.84-5.20); LYMPHOCYTES PERCENT AUTO 10 % (21-46); MONOCYTES ABSOLUTE AUTO 0.69 K/mm3 (0.16-1.47); MONOCYTES PERCENT AUTO 8 % (4-13); Mean Corpuscular HGB Conc 34.0 g/dL (31.5-36.5); Mean Corpuscular Volume 91 fL (80-100); NEUTROPHILS ABSOLUTE AUTO 6.63 K/mm3 (1.96-9.15); NEUTROPHILS PERCENT AUTO 78 % (41-73); NRBC ABSOLUTE 0.00 K/mm3 (0.00-0.02); NRBC Auto 0.0 /100 WBC (0.0-0.2); Platelet Count 191 K/mm3 (150-400); RDW Coefficient Variation 15.2 % (11.7-14.2); RDW Standard Deviation 49.1 fL (35.1-46.3)
[2025-04-22 05:04] LABS: Alanine Aminotransfer (ALT/SGP 60.0 U/L (12-78); Albumin, Blood 1.5 g/dL (3.4-5.0); Albumin/Globulin Ratio 0.5 (0.8-1.8); Anion Gap 7.0 mmol/L (3-11); Aspartate Aminotrans (AST/SGOT 82.0 U/L (12-37); Bilirubin, Total 0.5 mg/dL (0.1-1.0); Blood Urea Nitrogen 15.0 mg/dL (8-24); CO2, Blood 23.0 mmol/L (21-32); Calcium, Blood 6.8 mg/dL (8.5-10.1); Chloride, Blood 113.0 mmol/L (98-108); Creatinine, Blood 0.89 mg/dL (0.60-1.20); Globulin, Blood 3.1 g/dL (2.2-4.0); Glucose, Blood 94.0 mg/dL (70-99); Magnesium, Blood 1.6 mg/dL (1.6-2.4); Phosphorus, Blood 2.1 mg/dL (2.5-4.9); Potassium, Blood 3.7 mmol/L (3.5-5.5); Sodium, Blood 139.0 mmol/L (136-145); Total Protein, Blood 4.6 g/dL (6.4-8.2)
[2025-04-22] MEDS ORDERED: Dose Adjust by Pharmacy XX STA (05:27)
--- NOTE | 2025-04-22 06:39 | NUR ---
SHIFT SUMMARY: PT IS DOING WELL AND RESTING IN BED. NO ACUTE CHANGES THOUGHOUT THE SHIFT. PT IS ALERT AND FOLLOWING COMMANDS. PT DENIES ANY PAIN, CP OR SOB. PT REMAINS ON LEVOPHED AND HEPARIN GTT PER EMR ORDERS. VITAL SIGNS REMAIN STABLE. IV: PICC LINE IN LUE. GREEN CATHETER IN PLACE AND DRAINING TO GRAVITY. PT REMAINS NPO BUT CAN HAVE SIPS OF WATER. LINES AND CORDS PLACED OUT OF REACH. CALL LIGHT PLACED WITHIN REACH.
[2025-04-22] MEDS ORDERED: Pantoprazole Sodium 40 MG Injection IV SCH (10:00)
--- NOTE | 2025-04-22 14:40 | NUR ---
UPDATE: ASSESSED PT, NO EGD TODAY PER . PUREE DIET ORDER PER . PT UNDERSTANDS RISK OF ASPIRATION, PT REFUSES DOBHOFF, ABLE TO FEED SELF.
[2025-04-22 15:48] LABS: Hematocrit 25.5 % (37.0-53.0); Hemoglobin 8.3 g/dL (13.5-17.5)
[2025-04-22] MEDS ORDERED: Potassium Phosphate Dibasic 30 MM in NS 500 ML IV SCH (16:00)
--- NOTE | 2025-04-22 17:43 | NUR ---
SHIFT SUMMARY: SEE PREVIOUS NOTES. PT IS A&O X 4, ABLE TO FOLLOW COMMANDS AND COMMUNICATE NEEDS. PT DENIED PAIN T/O SHIFT. PT REMAINS ON RA WITH SP02 ABOVE 95% NO RESP DISTRESS NOTED. PT'S HEART RHYTHM BACK AND FOURTH FROM AFIB/SB/SR WITH FREQUENT PVC'S, HR BETWEEN 50-70'S. LEVOPHED INFUSING TO MAINTAIN MAP ABOVE 65, SEE FLOWSHEET. PT CONTINUES TO BE ON HEPARIN AT 21U/KG/HR. PT BACK TO PUREE DIET PER , PT ASSUMES RISK OF ASPIRATION. PT EDUCATED ON S/S OF ASPIRATION. ORAL CARE PROVIDED BEFORE AND AFTER ORAL INTAKE. PT AT 90 DEGREES FOR FEED AND REMAINS IN THIS POSITION 30 MINTUES POST. PT ABLE TO FEED SELF. PT HAD ONE SMALL BLACK STOOL THIS SHIFT, AWARE. GREEN PATENT, DRAINING TO GRAVITY. PT REPOSITIONED Q2HRS. PLAN OF CARE ONGOING.
--- NOTE | 2025-04-22 20:55 | NUR ---
ASSUMPTION OF CARE: ASSUMED CARE AT START OF SHIFT (1899). REPORT RECEIVED FROM DAY SHIFT RN. PT IS DOING WELL AND RESTING IN BED. PT IS ALERT AND FOLLOWING COMMANDS. PT DENIES ANY PAIN, CP, OR SOB AT THIS TIME. ON LEVOPHED AND HEPARIN GTT PER EMR ORDERS. LUNG SOUNDS ARE CLEAR AND EQUAL BILATERALLY, ON RA WITH SPO2 >95%. IRREGULAR RYTHM WITH SBP: 90-100'S MAP >65 HR: 60-70'S. IV: PICC LINE IN LUE. GREEN CATHETER IN PLACE AND DRAINING TO GRAVITY. LINES, CORDS, AND TUBES PLACED OUT OF REACH. CALL LIGHT PLACED WITHIN REACH.
[2025-04-23] VITALS (74 sets, daily range): BP systolic 64–138; BP diastolic 42–93
[2025-04-23 03:34] LABS: Hematocrit 23.5 % (37.0-53.0); Hemoglobin 7.6 g/dL (13.5-17.5); Mean Corpuscular HGB Conc 32.3 g/dL (31.5-36.5); Mean Corpuscular Volume 92 fL (80-100); NRBC ABSOLUTE 0.00 K/mm3 (0.00-0.02); NRBC Auto 0.0 /100 WBC (0.0-0.2); Platelet Count 194 K/mm3 (150-400); RDW Coefficient Variation 15.1 % (11.7-14.2); RDW Standard Deviation 49.4 fL (35.1-46.3)
[2025-04-23 03:53] LABS: Alanine Aminotransfer (ALT/SGP 42.0 U/L (12-78); Albumin, Blood 1.4 g/dL (3.4-5.0); Albumin/Globulin Ratio 0.5 (0.8-1.8); Anion Gap 9.0 mmol/L (3-11); Aspartate Aminotrans (AST/SGOT 45.0 U/L (12-37); Bilirubin, Total 0.5 mg/dL (0.1-1.0); Blood Urea Nitrogen 13.0 mg/dL (8-24); CO2, Blood 21.0 mmol/L (21-32); Calcium, Blood 6.7 mg/dL (8.5-10.1); Chloride, Blood 114.0 mmol/L (98-108); Creatinine, Blood 0.9 mg/dL (0.60-1.20); Globulin, Blood 3.1 g/dL (2.2-4.0); Glucose, Blood 92.0 mg/dL (70-99); Magnesium, Blood 1.7 mg/dL (1.6-2.4); Phosphorus, Blood 2.2 mg/dL (2.5-4.9); Potassium, Blood 3.8 mmol/L (3.5-5.5); Sodium, Blood 140.0 mmol/L (136-145); Total Protein, Blood 4.5 g/dL (6.4-8.2)
[2025-04-23] MEDS ORDERED: Dose Adjust by Pharmacy XX STA (04:54)
--- NOTE | 2025-04-23 05:56 | NUR ---
SHIFT SUMMARY: PT IS DOING WELL AND RESTING IN BED. NO ACUTE CHANGES THROUGHOUT THE SHIFT. PT DENIES ANY PAIN, CP, OR SOB. PT WAS ABLE TO SLEEP MOST OF THE NIGHT. IRREGUALR RYTHM PERSISTS, PT HAS MULTIPLE EPISODES OF A-FIB, PVCS, BIGEMINY THROUGHT THE NIGHT. SBP: 90-120'S MAP >65 HR: 50-70'S WITH BRIEF EPISODES OF BRADYCARDIA WHERE PT'S HR WOULD DROP TO 30'S. LEVOPHED GTT PUT ON STANDBY AROUND 0500. PT REMAINS ON HEPARIN GTT PER EMR ORDERS. GREEN CATHETER REMAINS IN PLACE AND DRAINING TO GRAVITY. IV: PICC LINE IN LUE. LINES, CORDS, AND TUBES PLACED OUT OF REACH. CALL LIGHT PLACED WITHIN REACH.
[2025-04-23] MEDS ORDERED: Potassium Phosphate Dibasic 30 MM in Dextrose 5% 500 ML IV STA (08:23)
[2025-04-23] MEDS ORDERED: NS 500 ML IV SCH (10:25)
--- NOTE | 2025-04-23 17:35 | NUR ---
Shift summary No acute events. Pt alert and oriented. Reports feeling tired and declines to work w/ OT during shift. Heparin infusing per emar, rate unchanged during day. Levophed restarted briefly and titrated off at approx 1300 to maintain map>65. Pt remains on room air. Lungs clear. Pt afebrile. No bm today. Pt tolerating pureed diet well, education to take small bites and sips reinforced and pt verbalized understanding. Pt recieved 1 unit prbcs. Vidal cath patent and draining to gravity. Call light w/ in reach. Plan of care ongoing.
--- NOTE | 2025-04-23 22:28 | NUR ---
ASSUMPTION OF CARE: ASSUMED CARE AT START OF SHIFT (1899). REPORT RECEIVED FROM DAY SHIFT RN. PT IS DOING WELL AND RESTING IN BED. PT ALERT AND FOLLOWING COMMANDS. PT DENIES ANY PAIN, CP, OR SOB AT THIS TIME. LUNG SOUNDS ARE CLEAR AND EQUAL BILATERALLY, ON RA WITH SPO2 >95%. IRREGULAR RYTHM SBP: 90-100'S MAP >65 HR: 60-70'S. LEVOPHED GTT HAS BEEN ON STANDBY SINCE THE AFTERNOON. IV: PICC LINE IN LUE. GREEN CATHETER IN PLACE AND DRAINING TO GRAVITY. LINES AND CORDS PLACED OUT OF REACH. CALL LIGHT PLACED WITHIN REACH.
[2025-04-24] VITALS (45 sets, daily range): BP systolic 91–128; BP diastolic 47–67
[2025-04-24 03:18] LABS: BASOPHILS ABSOLUTE AUTO 0.03 K/mm3 (0.00-0.23); BASOPHILS PERCENT AUTO 0 % (0-2); EOSINOPHILS ABSOLUTE AUTO 0.13 K/mm3 (0.00-0.68); EOSINOPHILS PERCENT AUTO 2 % (0-6); Hematocrit 26.0 % (37.0-53.0); Hemoglobin 8.5 g/dL (13.5-17.5); IMMATURE GRAN ABSOLUTE AUTO 0.15 K/mm3 (0.00-0.10); IMMATURE GRAN PERCENT AUTO 2 % (0-1); LYMPHOCYTES ABSOLUTE AUTO 0.91 K/mm3 (0.84-5.20); LYMPHOCYTES PERCENT AUTO 14 % (21-46); MONOCYTES ABSOLUTE AUTO 0.70 K/mm3 (0.16-1.47); MONOCYTES PERCENT AUTO 10 % (4-13); Mean Corpuscular HGB Conc 32.7 g/dL (31.5-36.5); Mean Corpuscular Volume 90 fL (80-100); NEUTROPHILS ABSOLUTE AUTO 4.82 K/mm3 (1.96-9.15); NEUTROPHILS PERCENT AUTO 72 % (41-73); NRBC ABSOLUTE 0.00 K/mm3 (0.00-0.02); NRBC Auto 0.0 /100 WBC (0.0-0.2); Platelet Count 193 K/mm3 (150-400); RDW Coefficient Variation 15.5 % (11.7-14.2); RDW Standard Deviation 49.7 fL (35.1-46.3)
[2025-04-24] MEDS ORDERED: Dose Adjust by Pharmacy XX STA (04:07)
--- NOTE | 2025-04-24 06:25 | NUR ---
SHIFT SUMMARY: PT IS DOING WELL AND RESTING IN BED. NO ACUTE CHANGES THROUGHOUT THE SHIFT. PT IS ALERT AND FOLLOWING COMMANDS. PT WAS ABLE TO SLEEP MOST OF THE NIGHT. VITAL SIGNS REAMIN STABLE. PT DENIES ANY PAIN, CP, OR SOB. PICC LINE IN LUE. GREEN CATHETER IN PLACE AND DRAINING TO GRAVITY. LINES AND CORDS PLACED OUT OF REACH. CALL LIGHT PLACED WITHIN REACH.
[2025-04-24] MEDS ORDERED: Sucralfate 1000MG / 10ML UD BTL PO SCH (10:00)
[2025-04-24] MEDS ORDERED: TPN Consult Notification XX ONE (11:10)
[2025-04-24] MEDS ORDERED: Parenteral Electolytes 40 ML,Potassium Phosphate Dibasic 30 MM,Multivitamins 10 ML,ZINC... IV SCH (17:00)
--- NOTE | 2025-04-24 18:38 | NUR ---
Shift summary No acute events today. PT worked w/ PT and OT and was able to stand briefly on right leg. Pt remains alert and oriented and plans for care discussed w/ pt. PT and friend (Mera) at bedside express wishes for pt to return home, stating they have home care established 'around the clock' and have neccessarry equipment such as hospital bed available. Heparin continues, rate unchanged t/o day- 21units/hr. CPN started and is running as ordered. Pt ate meals w/ good appetite today. Pt remains on room air w/ clear lungs. Sinus/marly on monitor w/ pvcs. Bp has been stable w/ map>65. Goal for map is [address] Brody. Pt afebrile. Vidal cath remains in place w/ good output. Pt had 2 small, soft bms today. Brown in color. LLE remains somewhat swollen, but appears to have improved from previous day's assessment. PT tolerated po medications well crushed in applesauce. Bed bath given. Call light w/ in reach. Plan of care ongoing.
[2025-04-25] VITALS (17 sets, daily range): BP systolic 95–156; BP diastolic 51–133
[2025-04-25] MEDS ORDERED: Dose Adjust by Pharmacy XX STA ×3 (03:43→10:47)
[2025-04-25 04:27] LABS: Anion Gap 9 mmol/L (3-11); Blood Urea Nitrogen 15 mg/dL (8-24); CO2, Blood 23 mmol/L (21-32); Calcium, Blood 7.1 mg/dL (8.5-10.1); Chloride, Blood 110 mmol/L (98-108); Creatinine, Blood 0.79 mg/dL (0.60-1.20); Glucose, Blood 253 mg/dL (70-99); Potassium, Blood 5.1 mmol/L (3.5-5.5); Sodium, Blood 137 mmol/L (136-145); Triglycerides 177 mg/dL (30-160)
--- NOTE | 2025-04-25 05:27 | NUR ---
SHIFT SUMMARY PT REMAINS ALERT AND ORIENTED WHEN AWAKE AND ARROUSABLE WHILE SLEEPING, PT IS ABLE TO MAKE NEEDS KNOWN AND FOLLOWS COMMANDS APPROPRIATELY, PT AFEBRILE T/O THE NIGHT. PT ON RA AND SPO2 >95% AND DENIES ANY SOB. PT SBP IN THE 110-120'S WITH MAP >65. PT DENIES ANY CHEST PAIN/PRESSURE, HEPARIN GTT INFUSING @ 21 UNITS/KG. PT HAD BM THIS SHIFT, PT TOLERATING PO INTAKE, CPN CONTINUES TO INFUSE. GREEN CATHETER IN PLACE, PATENT, AND DRAINING TO GRAVITY. CALL LIGHT WITHIN REACH, NO IMMEDIATE CONCERNS NOTED AT THIS TIME. WILL REPORT TO ONCOMING TARAS
[2025-04-25 06:38] LABS: BASOPHILS ABSOLUTE AUTO 0.05 K/mm3 (0.00-0.23); BASOPHILS PERCENT AUTO 1 % (0-2); EOSINOPHILS ABSOLUTE AUTO 0.12 K/mm3 (0.00-0.68); EOSINOPHILS PERCENT AUTO 2 % (0-6); Hematocrit 25.6 % (37.0-53.0); Hemoglobin 8.3 g/dL (13.5-17.5); IMMATURE GRAN ABSOLUTE AUTO 0.19 K/mm3 (0.00-0.10); IMMATURE GRAN PERCENT AUTO 3 % (0-1); LYMPHOCYTES ABSOLUTE AUTO 0.84 K/mm3 (0.84-5.20); LYMPHOCYTES PERCENT AUTO 13 % (21-46); MONOCYTES ABSOLUTE AUTO 0.61 K/mm3 (0.16-1.47); MONOCYTES PERCENT AUTO 10 % (4-13); Mean Corpuscular HGB Conc 32.4 g/dL (31.5-36.5); Mean Corpuscular Volume 93 fL (80-100); NEUTROPHILS ABSOLUTE AUTO 4.54 K/mm3 (1.96-9.15); NEUTROPHILS PERCENT AUTO 72 % (41-73); NRBC ABSOLUTE 0.00 K/mm3 (0.00-0.02); NRBC Auto 0.0 /100 WBC (0.0-0.2); Platelet Count 201 K/mm3 (150-400); RDW Coefficient Variation 15.7 % (11.7-14.2); RDW Standard Deviation 51.9 fL (35.1-46.3)
--- NOTE | 2025-04-25 07:32 | NUR ---
ASSUMED CARE THIS RN ASSUMED CARE OF PATIENT AT 0700 WITH PRECEPTOR TANO GRAJEDA. PATIENT IS AWAKE DURING BSSR. HE IS CURRENTLY ON RA WITH SPO2 >96%. HIS RESPIRATIONS ARE EVEN AND UNLABORED. HIS SYSTOLIC BP >100, MAP >65. HE HAS HEPARIN 21 UNITS RUNNING AT 26.5ML/HR. CPN AT 73ML/HR. HR 50-60S MONITOR SHOWING SINUS OFELIA. HE HAS A RGEEN CATHETER PATENT AND DRAINING YELLOW URINE TO GRAVITY. BED IN LOWEST POSITION. CALL LIGHT IN REACH.
--- NOTE | 2025-04-25 12:22 | NUR ---
PATIENT DECLINED OT/PT THIS RN AND OT & PT SPOKE WITH PATIENT ABOUT GETTING UP TO SIDE OF BED AND PERFORMING TOE-TOUCH WEIGHT BEARING IN PREPARATION FOR DISCHARGE TOMORROW. PATIENT DECLINED BOTH OT/PT AND DESCRIBED REFUSAL A CONCERN THAT HE MAY BECOME INJURED AND WOULDN'T GET TO GO HOME. DESPITE BEING REASSURED THAT OT/PT WOULD PERFORM CARE TO HIS LIMITATIONS HE DECLINED. WE WILL CONTINUE TO ENCOURAGE MOVEMENT AND ACTIVITES THAT MOBILIZE THE PATIENT IN PREPARATION TO GO HOME, INCLUDING SITTING UP AND SITTING ON EDGE OF BED TOLERATED.
--- NOTE | 2025-04-25 18:38 | NUR ---
SHIFT SUMMARY PATIENT HAS NOT HAD ANY ACUTE EVENTS THIS SHIFT. HE HAS BEEN ALERT AND ORIENTED X4 AND ACTIVE IN PARTICIPATING IN DISCHARGE PLANNING. OTHERWISE HE HAS NOT PARTICIPATED IN PT/OT/ST AND STATES HE'D RATHER FOCUS ON GETTING READY TO GO HOME. HE HAS HAD A FAIR APPETITE AND ATE BREAKFAST AND DINNER. DECLINED LUNCH. HE IS ON RA WITH SPO2 >98%. SYSTOLIC BP >90 AND MAP >65 ALL SHIFT. HR SHOWS NSR WITH OCASSIONAL PVCS. HE HAS HAD BRADYCARDIA 50-60S. DENIES ANY CHEST PAIN OR SOB. HE HAS PICC IN RA THAT FLUSHES AND DRAWS. GREEN CATHETER IS PATENT AND DRAINING CLEAR YELLOW URINE TO GRAVITY. BED IN LOWEST POSITION. CALL LIGHT IN REACH.
[2025-04-26] VITALS (13 sets, daily range): BP systolic 87–119; BP diastolic 49–59
[2025-04-26 05:46] LABS: Hematocrit 26.6 % (37.0-53.0); Hemoglobin 8.6 g/dL (13.5-17.5); Mean Corpuscular HGB Conc 32.3 g/dL (31.5-36.5); Mean Corpuscular Volume 92 fL (80-100); NRBC ABSOLUTE 0.00 K/mm3 (0.00-0.02); NRBC Auto 0.0 /100 WBC (0.0-0.2); Platelet Count 199 K/mm3 (150-400); RDW Coefficient Variation 15.8 % (11.7-14.2); RDW Standard Deviation 50.5 fL (35.1-46.3)
[2025-04-26 06:04] LABS: Anion Gap 7.0 mmol/L (3-11); Blood Urea Nitrogen 17.0 mg/dL (8-24); CO2, Blood 24.0 mmol/L (21-32); Calcium, Blood 7.4 mg/dL (8.5-10.1); Chloride, Blood 110.0 mmol/L (98-108); Creatinine, Blood 0.76 mg/dL (0.60-1.20); Glucose, Blood 95.0 mg/dL (70-99); Potassium, Blood 4.2 mmol/L (3.5-5.5); Sodium, Blood 137.0 mmol/L (136-145)
--- NOTE | 2025-04-26 06:21 | NUR ---
SHIFT SUMMARY PT REMAINS A&O X4, [id number] COMMANDS, AND MAKE NEEDS KNOWN. PT ON RA T/O THE NIGHT WITH SPO2 >95%, DENIES ANY SOB. PT SINUS OFELIA WITH PVCs AND SBP IN THE 110-120'S AND MAP >65, PT DENIES CHEST PAIN/PRESSURE. GREEN CATHETER IN PLACE, PATENT, AND DRAINING LIGHT YELLOW URINE TO GRAVITY. NO BM THIS SHIFT. PT HAS UNILATERAL EDEMA IN THE LLE. PT TOLERATING PO INTAKE AND MEDICATIONS. PT IS SALINE LOCKED WITH NO MEDICATIONS CURRENTLY INFUSING. CALL LIGHT WITHIN REACH, BED IN LOWEST POSITION. NO IMMEDIATE CONCERNS NOTED AT THIS TIME. WILL REPORT TO ONCOMING RN.
--- NOTE | 2025-04-26 10:32 | NUR ---
Spiritual Care Visit. Pt. is awake in bed and welcomes my visit. Pt. is pleasant and is able to verbalize his expectations to be discharged home today. Listen with empathy and interest. Pt. denies any concerns about going home. Pt. welcomed prayer. Prayed for the Pt. Pt. verbalized gratitude for the spiritual care visit.
--- NOTE | 2025-04-26 10:36 | NUR ---
ASSUMPTION OF CARE [facility]. PT RESTING IN BED, ALERT AND ORIENTED X4. PT ANSWERS QUESTIONS APPROPRIATLEY, FOLLOWS DIRECTION WHEN PROMPTED AND IS ABLE TO MAKE HIS NEEDS KNOWN. PT MOVES EXTREMITIES EQUALLY BILATERALLY, DENIES PAIN AT TIME OF ASSESSMENT. PT DECLINES WORKING WITH PT/OT FOR FEAR OF GETTING HURT AND DELAYING HIM BEING ABLE TO GO HOME. PT ALSO DECLINED WORKING WITH SPEECH THERAPY. HR 50-60'S SINUS, MAP >65. PT DENIES CP/PRESSURE. PT ON RA, OXYGEN SATURATION >95%. ABDOMEN SOFT, BOWEL TONES ACTIVE THROUGHOUT, PT TAKING PILLS CRUSHED IN PUDDING. PT ASSUEMS RISK OF POSSIBLE ASPIRATION WITH ORAL INTAKE. GREEN IN PLACE PATENT DRAINING YELLOW URINE TO GRAVITY. PICC LINE IN PLACE TO RA . EDEMA NOTED TO LLE. BED IN LOWEST POSITION, CALL LIGHT WITHIN REACH, CARE CONTINUES.
[2025-04-26] MEDS ORDERED: Amiodarone HCl200 MG PO (13:33)
[2025-04-26] MEDS ORDERED: ELIQUIS5 M2 PO (13:33)
[2025-04-26] MEDS ORDERED: MIDO5 PO (13:34)
[2025-04-26] MEDS ORDERED: SUCR1 PO (13:36)
[2025-04-26] MEDS ORDERED: LANSOPRAZOLE15 MG PO (13:36)
[2025-04-26] MEDS ORDERED: TRAM50 PO (13:37)
[2025-04-26] MEDS ORDERED: REMEDY SPECIAL113 GM TOP (13:41)
--- NOTE | 2025-04-26 15:09 | NUR ---
DISCHARGE PT ALERT AND ORIENTED, ANSWERS QUESTIONS APPROPRIATLEY. DISCHARGE INSTRUCTIONS GONE OVER WITH PATIENT, EDUCATION AND DISCHARGE PAPERWORK PROVIDED. PT SENT HOME WITH ONE PHYSICAL PRESCRIPTION TO BE FILLED. PT TRANSFERED TO WHEELCHAIR WITH 3 PERSON ASSIST. ALL PT BELONGINGS GIVEN TO PATIENT FAMILY/CAREGIVERS. PT DRESSED, WHEELED OUT TO PERSONAL CAR.
== END 2025-04-26 15:15 | disposition home health service (06) | DRG 853 ==
LOC: ER 05:36 → ICUE 09:16
PROVIDERS: Emergency Medicine; Family Medicine; Internal Medicine Critical Care Medicine; Student in an Organized Health Care Education/Training Program; ADMIT Internal Medicine
PROC: 5A2204Z Restoration of Cardiac Rhythm, Single (ICD-10-PCS; principal; 2025-04-12)
PROC: 05HN33Z Insertion of Infusion Device into Left Internal Jugular Vein, Percutaneous Approach (ICD-10-PCS; 2025-04-12)
PROC: 03HY32Z Insertion of Monitoring Device into Upper Artery, Percutaneous Approach (ICD-10-PCS; 2025-04-12)
PROC: 4A133B1 Monitoring of Arterial Pressure, Peripheral, Percutaneous Approach (ICD-10-PCS; 2025-04-12)
PROC: 4A133J1 Monitoring of Arterial Pulse, Peripheral, Percutaneous Approach (ICD-10-PCS; 2025-04-12)
PROC: 30233N1 Transfusion of Nonautologous Red Blood Cells into Peripheral Vein, Percutaneous Approach (ICD-10-PCS; 2025-04-12)
PROC: 0T9B70Z Drainage of Bladder with Drainage Device, Via Natural or Artificial Opening (ICD-10-PCS; 2025-04-12)
PROC: 5A1935Z Respiratory Ventilation, Less than 24 Consecutive Hours (ICD-10-PCS; 2025-04-12)
PROC: 3E033XZ Introduction of Vasopressor into Peripheral Vein, Percutaneous Approach (ICD-10-PCS; 2025-04-12)
PROC: 3E03329 Introduction of Other Anti-infective into Peripheral Vein, Percutaneous Approach (ICD-10-PCS; 2025-04-12)
PROC: 0BH17EZ Insertion of Endotracheal Airway into Trachea, Via Natural or Artificial Opening (ICD-10-PCS; 2025-04-12)
PROC: 0D9670Z Drainage of Stomach with Drainage Device, Via Natural or Artificial Opening (ICD-10-PCS; 2025-04-12)
PROC: 0DB28ZX Excision of Middle Esophagus, Via Natural or Artificial Opening Endoscopic, Diagnostic (ICD-10-PCS; 2025-04-14)
PROC: 0QB33ZX Excision of Left Pelvic Bone, Percutaneous Approach, Diagnostic (ICD-10-PCS; 2025-04-17)
PROC: 3E0336Z Introduction of Nutritional Substance into Peripheral Vein, Percutaneous Approach (ICD-10-PCS; 2025-04-18)
PROC: 06H03DZ Insertion of Intraluminal Device into Inferior Vena Cava, Percutaneous Approach (ICD-10-PCS; 2025-04-21)
DX: A41.89 Other specified sepsis (principal); G92.8 Other toxic encephalopathy; J96.01 Acute respiratory failure with hypoxia; R65.21 Severe sepsis with septic shock; K20.91 Esophagitis, unspecified with bleeding; K25.4 Chronic or unspecified gastric ulcer with hemorrhage; J15.69 Pneumonia due to other Gram-negative bacteria; R57.8 Other shock; I26.99 Other pulmonary embolism without acute cor pulmonale; Z66 Do not resuscitate; Z51.5 Encounter for palliative care; Z60.2 Problems related to living alone; R57.1 Hypovolemic shock; N17.0 Acute kidney failure with tubular necrosis; D62 Acute posthemorrhagic anemia; E87.1 Hypo-osmolality and hyponatremia; C79.51 Secondary malignant neoplasm of bone; M84.454A Pathological fracture, pelvis, initial encounter for fracture; R64 Cachexia; E87.0 Hyperosmolality and hypernatremia; E87.21 Acute metabolic acidosis; I82.4Z2 Acute embolism and thrombosis of unspecified deep veins of left distal lower extremity; J91.8 Pleural effusion in other conditions classified elsewhere; C61 Malignant neoplasm of prostate; I48.91 Unspecified atrial fibrillation; F17.210 Nicotine dependence, cigarettes, uncomplicated; F10.10 Alcohol abuse, uncomplicated; E87.6 Hypokalemia; E83.39 Other disorders of phosphorus metabolism; D69.6 Thrombocytopenia, unspecified; K44.9 Diaphragmatic hernia without obstruction or gangrene; K29.70 Gastritis, unspecified, without bleeding; K29.80 Duodenitis without bleeding; E83.51 Hypocalcemia; I08.3 Combined rheumatic disorders of mitral, aortic and tricuspid valves; R13.12 Dysphagia, oropharyngeal phase; E86.0 Dehydration; I67.9 Cerebrovascular disease, unspecified; N18.9 Chronic kidney disease, unspecified; D63.0 Anemia in neoplastic disease; Z68.21 Body mass index [BMI] 21.0-21.9, adult; Z79.899 Other long term (current) drug therapy
CPT/HCPCS: 20225; 31500; 31720; 36415; 36430; 36569; 51702; 70450; 71045; 71260; 74176; 74230; 76937; 77012; 80047; 80048; 80053; 80069; 81001; 82272; 82330; 82550; 82803; 82947; 83605; 83735; 83880; 83930; 83935; 84100; 84153; 84295; 84439; 84443; 84478; 84484; 85014; 85018; 85025; 85027; 85049; 85520; 85610; 85730; 86850; 86900; 86901; 86923; 87040; 87070; 87077; 87086; 87186; 87205; 88307; 88341; 88342; 92526; 92610; 92611; 92960; 93005; 93010; 93306; 93971; 94002; 94003; 94762; 96361-59; 96365-59; 96372-59; 96375-59; 97110; 97162; 97166; 97530; 99152; 99285-25; A9270; C1769; C1880; J0169; J0282; J0612; J0692; J0696; J1160; J1644; J1650; J1815; J2371; J2470; J2543; J2704; J2765; J3010; J3411; J3475; J3480; J7030; J7040; J7042; J7050; J7060; J7070; J7120; P9016; Q9967